=== PATIENT | male | born 1930 | race Caucasian/White ===

== ENCOUNTER 2016-09-27 09:29 | Observation (INO) | payer MEDICARE ==
[~2016-09-27] VITALS: Ht 180.3 cm; Wt 63.0 kg
[~2016-09-27 09:29] MED LIST: APIX2.5T PO; ASPI1TAB69 PO; CYCL1TAB29 PO; LEVEMIR SQ; METO25TA3 PO; NORC5TAB PO
[2016-09-27 09:48] VITALS: BP 156/71; PULSE 94; RESP 20; TEMP 98.5; O2SAT 98
[2016-09-27] MEDS ORDERED: SODIUM CHLORIDE 0.9% FLUSH 5 ML FLUSH IVF PRN (10:45)
--- NOTE | 2016-09-27 11:32 | RADRPT ---
EXAM DATE/TIME: 09/27/2016 10:53 [facility] COMPARISON: CHEST SINGLE AP, May 12, 2016, 20:58. INDICATIONS : Chest pain after fall. MEDICAL HISTORY : Renal failure, acute. SURGICAL HISTORY : Dialysis catheter. ENCOUNTER: Initial ACUITY: 2 days PAIN SCORE: 10/10 LOCATION: Bilateral chest FINDINGS: A single view of the chest demonstrates a small right pleural effusion and right basilar atelectasis. Right-sided vascular tunnel catheter with tip in the right atrium. Left lung clear. Osseous structu res are intact. CONCLUSION: 1. Small right pleural effusion and right basilar density likely atelectasis. Jeffrey Raza MD on September 27, 2016 at 11:28 Board Certified Radiologist. This report was verified electronically.
--- NOTE | 2016-09-27 11:33 | RADRPT ---
EXAM DATE/TIME: 09/27/2016 10:58 [facility] COMPARISON: PELVIS AP ONLY, September 05, 2016, 13:22. INDICATIONS : Pelvis pain after fall. MEDICAL HISTORY : Renal failure, acute. SURGICAL HISTORY : Dialysis catheter. ENCOUNTER: Initial ACUITY: 2 days PAIN SCORE: 10/10 LOCATION: Bilateral pelvis. FINDINGS: A single frontal view of the pelvis demonstrates no evidence of fracture. The bony pelvic ring is in tact. Bony mineralization is normal. The soft tissues are intact. The mild degenerative changes of both hips. Degenerative changes lower lumbar spine. CONCLUSION: 1. Degenerative changes of both hips. No fracture seen. Jeffrey Raza MD on September 27, 2016 at 11:30 Board Certified Radiologist. This report was verified electronically.
--- NOTE | 2016-09-27 11:35 | RADRPT ---
EXAM DATE/TIME: 09/27/2016 11:01 [facility] COMPARISON: No previous studies available for comparison. INDICATIONS : Lower back pain after fall. MEDICAL HISTORY : Renal failure, acute. SURGICAL HISTORY : Dialysis catheter. ENCOUNTER: Initial ACUITY: 2 days PAIN SCORE: 10/10 LOCATION: Bilateral lower back. FINDINGS: There is severe degenerative change throughout the lumbar spine with prominent endplate osteophytes a nd syndesmophytes throughout. There is no definite evidence of fracture or destructive change. Minima l scoliotic curvature is present. No spondylolisthesis. CONCLUSION: Severe diffuse degenerative change. No acute bony findings. Will Murillo MD on September 27, 2016 at 11:31 Board Certified Radiologist. This report was verified electronically.
[2016-09-27 11:36] VITALS: O2SAT 94
--- NOTE | 2016-09-27 11:54 | PD ---
HPI Chief Complaint: Fall Time Seen by Provider: 10:33 Travel History International Travel<30 days: No Contact w/Intl Traveler<30days: No Traveled to known affect area: No History of Present Illness HPI 85-year-old male with history of end-stage renal disease, hypertension, diabetes , presents to the ER today because he states that he has been feeling weak for several days, yesterday felt weak and stumbled and fell on his back, complaining of back pain. This morning, he states that he had difficulty getting up to dialysis because of weakness. He denies any fevers, chest pains, shortness of breath, or other symptoms. Modifying Factors: None Associated Signs & Symptoms: General fatigue, fall, back pain Risk Factors: Elderly, on dialysis PFSH Past Medical History Hx Anticoagulant Therapy: Yes Asthma: No Autoimmune Disease: No Blood Disorders: No Anxiety: Yes Depression: No Heart Rhythm Problems: No Cancer: No Cardiovascular Problems: Yes High Cholesterol: No Chemotherapy: No Chest Pain: No Congestive Heart Failure: No COPD: No Diabetes: Yes Patient Takes Glucophage: No Dialysis: Yes Diminished Hearing: Yes Endocrine: Yes Genitourinary: Yes (RENAL INSUFF, dialysis) Hypertension: Yes Immune Disorder: No Implanted Vascular Access Dvce: Yes Musculoskeletal: Yes (WEAKNESS, USES CANE) Neurologic: No Psychiatric: Yes Reproductive: No Respiratory: No Radiation Therapy: No Renal Failure: Yes (INSUFFICIENCY) Sleep Apnea: No Thyroid Disease: Yes Past Surgical History AICD: No Arteriovenous Shunt: No Eye Surgery: Yes (3 YRS AGO) Insulin Pump: No Joint Replacement: No Pacemaker: No Other Surgery: Yes Social History Alcohol Use: Yes (OCC) Tobacco Use: No Substance Use: No Allergies-Medications (Allergen,Severity, Reaction): Coded Allergies: No Known Allergies (Verified , 09/27/16) Reported Meds & Prescriptions Reported Meds & Active Scripts Active Metoprolol Tartrate 25 Mg Tab 25 Mg PO Q12HR Flexeril (Cyclobenzaprine HCl) 10 Mg Tab 10 Mg PO TID [place] (Hydrocodone-Acetaminophen) 5-325 mg Tab 1 Tab PO Q6H PRN Reported Eliquis (Apixaban) 2.5 Mg Tab 2.5 Mg PO BID Levemir Inj (Insulin Detemir) 1,000 unit/ 10 ML Vial 8 Units SQ DAILY Do not mix with any other Insulin. Aspirin 81 Mg Tabdr 81 Mg PO DAILY Review of Systems Except as stated in HPI: all other systems reviewed are Neg Physical Exam Narrative GENERAL: Well-nourished, well-developed elderly male patient in no acute distress awake and oriented 3.. SKIN: Warm and dry. HEAD: Normocephalic. EYES: No scleral icterus. No injection or drainage. NECK: Supple, trachea midline. CARDIOVASCULAR: Regular rate and rhythm without murmurs, gallops, or rubs. RESPIRATORY: Breath sounds equal bilaterally. No accessory muscle use. GASTROINTESTINAL: Abdomen soft, non-tender, nondistended. MUSCULOSKELETAL: No cyanosis, or edema. BACK: Diffuse lower back lumbar tenderness without obvious deformity. No CVA tenderness. Data Data Last Documented VS Vital Signs Date Time Temp Pulse Resp B/P Pulse Ox O2 Delivery O2 Flow Rate FiO2 09/27/16 09:48 98.5 94 20 156/71 98 Orders Electrocardiogram (09/27/16 10:33) Complete Blood Count With Diff (09/27/16 10:33) Comprehensive Metabolic Panel (09/27/16 10:33) Magnesium (Mg) (09/27/16 10:33) Ckmb (Isoenzyme) Profile (09/27/16 10:33) Troponin I (09/27/16 10:33) Chest, Single Ap (09/27/16 10:33) Ct Brain W/O Iv Contrast(Rout) (09/27/16 10:33) Ecg Monitoring (09/27/16 10:33) Iv Access Insert/Monitor (09/27/16 10:33) Oximetry (09/27/16 10:33) Sodium Chloride 0.9% Flush (Ns Flush) (09/27/16 10:45) Spine, Lumbar Comp W/Obliq (09/27/16 10:33) Pelvis, Ap Only (Routine) (09/27/16 10:33) CKMB (09/27/16 11:45) CKMB% (09/27/16 11:45) Consult Pt Eval & Treat (09/27/16 16:14) Labs Laboratory Tests Test 09/27/16 11:45 White Blood Count 11.1 TH/MM3 Red Blood Count 3.82 MIL/MM3 Hemoglobin 9.9 GM/DL Hematocrit 32.1 % Mean Corpuscular Volume 84.0 FL Mean Corpuscular Hemoglobin 25.8 PG Mean Corpuscular Hemoglobin 30.8 % Concent Red Cell Distribution Width 18.3 % Platelet Count 262 TH/MM3 Mean Platelet Volume 7.7 FL Neutrophils (%) (Auto) 77.6 % Lymphocytes (%) (Auto) 9.9 % Monocytes (%) (Auto) 7.0 % Eosinophils (%) (Auto) 5.0 % Basophils (%) (Auto) 0.5 % Neutrophils # (Auto) 8.6 TH/MM3 Lymphocytes # (Auto) 1.1 TH/MM3 Monocytes # (Auto) 0.8 TH/MM3 Eosinophils # (Auto) 0.6 TH/MM3 Basophils # (Auto) 0.1 TH/MM3 CBC Comment DIFF FINAL Differential Comment Sodium Level 140 MEQ/L Potassium Level 4.4 MEQ/L Chloride Level 105 MEQ/L Carbon Dioxide Level 29.1 MEQ/L Anion Gap 6 MEQ/L Blood Urea Nitrogen 25 MG/DL Creatinine 3.63 MG/DL Estimat Glomerular Filtration 16 ML/MIN Rate Random Glucose 166 MG/DL Calcium Level 8.8 MG/DL Magnesium Level 2.0 MG/DL Total Bilirubin 0.3 MG/DL Aspartate Amino Transf 16 U/L (AST/SGOT) Alanine Aminotransferase 16 U/L (ALT/SGPT) Alkaline Phosphatase 218 U/L Total Creatine Kinase 124 U/L Creatine Kinase MB 2.6 NG/ML Troponin I 0.04 NG/ML Total Protein 7.0 GM/DL Albumin 3.1 GM/DL MDM Medical Decision Making Medical Screen Exam Complete: Yes Emergency Medical Condition: Yes Medical Record Reviewed: Yes Interpretation(s) EKG shows NSR, no ST elevation or depression, and no arrhythmias. No significant T-wave inversions. Laboratory Tests Test 09/27/16 11:45 White Blood Count 11.1 TH/MM3 (4.0-11.0) Red Blood Count 3.82 MIL/MM3 (4.50-5.90) Hemoglobin 9.9 GM/DL (13.0-17.0) Hematocrit 32.1 % (39.0-51.0) Mean Corpuscular Hemoglobin 25.8 PG (27.0-34.0) Mean Corpuscular Hemoglobin 30.8 % Concent (32.0-36.0) Red Cell Distribution Width 18.3 % (11.6-17.2) Neutrophils (%) (Auto) 77.6 % (16.0-70.0) Eosinophils (%) (Auto) 5.0 % (0.0-4.0) Neutrophils # (Auto) 8.6 TH/MM3 (1.8-7.7) Eosinophils # (Auto) 0.6 TH/MM3 (0-0.4) Blood Urea Nitrogen 25 MG/DL (7-18) Creatinine 3.63 MG/DL (0.60-1.30) Estimat Glomerular Filtration 16 ML/MIN (>89) Rate Random Glucose 166 MG/DL (74-106) Alkaline Phosphatase 218 U/L (45-117) Albumin 3.1 GM/DL (3.4-5.0) Last 24 hours Impressions Pelvis X-Ray 09/27/16 1033 Signed Impressions: Service Date/Time: September 10:58 - CONCLUSION: 1. Degenerative changes of both hips. No fracture seen. Jeffrey Raza MD Lumbar Spine X-Ray 09/27/16 103 Signed Impressions: Service Date/Time: September 11:01 - CONCLUSION: Severe diffuse degenerative change. No acute bony findings. Will Murillo MD Head CT 09/27/16 1033 Signed Impressions: Service Date/Time: September 11:50 - CONCLUSION: Stable brain appearance. No acute intracranial findings. Will Murillo MD Chest X-Ray 09/27/16 1033 Signed Impressions: Service Date/Time: September 10:53 - CONCLUSION: 1. Small right pleural effusion and right basilar density likely atelectasis. Jeffrey Raza MD Differential Diagnosis General weaknessmetabolic issues versus dehydration versus sepsis Narrative Course Patient states that he is scared at home, lives alone, is unable to walk, no longer gets home healthcare. Lab work did not indicate significant signs of sepsis, dehydration, metabolic issues. CAT scan did not show any signs of acute intercranial processes. He does not seem to have focal neurological deficits but he does appear to have problems with general weakness. At this point, I have discussed the case several times with case management and they state that they have had encounters with the patient the past. He does not want long-term care, wants to get therapy to walk again. At this point, my plan would be to admit the patient for further evaluation by physical therapy for ambulation and further evaluation of his abilities and safety to go home. I do not think that the patient seems to go home especially with him on a blood thinner, and frequent falls, and living alone. I have discussed my concerns with Dr. Watson who is agreeable to admit the patient as an observation. Diagnosis Primary Impression: Unable to ambulate Additional Impression: Weakness Admitting Information Admitting Physician Requests: it Ted Duff MD Sep 27, 2016 11:54
[2016-09-27 12:04] LABS: AUTOMATED NEUTROPHIL # 8.6 TH/MM3 (1.8-7.7); BASOPHIL # 0.1 TH/MM3 (0-0.2); BASOPHIL % 0.5 % (0.0-2.0); EOSINOPHIL # 0.6 TH/MM3 (0-0.4); HEMATOCRIT 32.1 % (39.0-51.0); HEMO FLAGS DIFF FINAL; LYMPH % 9.9 % (9.0-44.0); LYMPHOCYTE # 1.1 TH/MM3 (1.0-4.8); MEAN CORPUSCULAR HEMOGLOBIN 25.8 PG (27.0-34.0); MEAN CORPUSCULAR HGB CONC 30.8 % (32.0-36.0); NEUT % 77.6 % (16.0-70.0); PLATELET COUNT 262 TH/MM3 (150-450); RED BLOOD COUNT 3.82 MIL/MM3 (4.50-5.90); RED CELL DISTRIBUTION WIDTH 18.3 % (11.6-17.2); WHITE BLOOD COUNT 11.1 TH/MM3 (4.0-11.0)
--- NOTE | 2016-09-27 12:08 | RADRPT ---
EXAM DATE/TIME: 09/27/2016 11:50 [facility] COMPARISON: CT BRAIN W/O CONTRAST, September 05, 2016, 13:50. INDICATIONS : Dizziness. RADIATION DOSE: 43.15 CTDIvol (mGy) MEDICAL HISTORY : Cardiovascular disease. Hypertension. Diabetes mellitus type 2. SURGICAL HISTORY : None. ENCOUNTER: Initial ACUITY: 1 day PAIN SCALE: 0/10 LOCATION: cranial TECHNIQUE: Multiple contiguous axial images were obtained of the head. Using automated exposure control and adj ustment of the mA and/or kV according to patient size, radiation dose was kept as low as reasonably a chievable to obtain optimal diagnostic quality images. FINDINGS: Stable tiny basal ganglia and thalamic lacunar infarcts. Patchy moderate diminished attenuation and d eep white matter. No evidence of intracranial hemorrhage or mass. Nothing to suggest acute infarction . Extracranial structures are benign and intact. CONCLUSION: Stable brain appearance. No acute intracranial findings. Will Murillo MD on September 27, 2016 at 12:04 Board Certified Radiologist. This report was verified electronically.
[2016-09-27 12:19] LABS: ALT (GPT) 16 U/L (12-78); ANION GAP 6 MEQ/L (5-15); AST (GOT) 16 U/L (15-37); BICARBONATE 29.1 MEQ/L (21.0-32.0); BLOOD UREA NITROGEN 25 MG/DL (7-18); CHLORIDE 105 MEQ/L (98-107); GLOMERULAR FILTRATION RATE 16 ML/MIN (>89); POTASSIUM 4.4 MEQ/L (3.5-5.1); SODIUM (NA) 140 MEQ/L (136-145)
[2016-09-27 12:23] LABS: ALKALINE PHOSPHATASE 218 U/L (45-117); CREATINE KINASE 124 U/L (39-308); TOTAL BILIRUBIN ADULT 0.3 MG/DL (0.2-1.0)
[2016-09-27 12:35] LABS: CKMB 2.6 NG/ML (0.5-3.6)
[2016-09-27 14:00] VITALS: BP 148/76; PULSE 96; RESP 20; O2SAT 97
[2016-09-27] MEDS ORDERED: SENNOSIDES 8.6 MG TAB PO PRN (16:30)
[2016-09-27] MEDS: DOCUSATE SODIUM 100 MG CAP PO SCH (16:30)
[2016-09-27] MEDS ORDERED: BISACODYL 10 MG SUPP PR PRN (16:30)
[2016-09-27] MEDS ORDERED: MAGNESIUM HYDROXIDE SUSP 30 ML CUP PO PRN (16:30)
[2016-09-27] MEDS ORDERED: ACETAMINOPHEN 325 MG TAB PO PRN (16:30)
[2016-09-27] MEDS ORDERED: SODIUM CHLORIDE 0.9% FLUSH 5 ML FLUSH FLUSH PRN (16:30)
[2016-09-27] MEDS ORDERED: NALOXONE HCL 0.4 MG/ML AMP IV PRN (16:30)
[2016-09-27 17:29] VITALS: BP 148/69; PULSE 76; RESP 16; O2SAT 96
[2016-09-27] MEDS: HEPARIN SODIUM - SQ 10,000 UNITS/ML VIAL SQ SCH (17:29)
[2016-09-27 18:35] VITALS: BP 168/104; PULSE 84; RESP 17; O2SAT 97
[2016-09-27] MEDS ORDERED: GLUCAGON 1 MG/ML VIAL OTHER PRN (18:45)
[2016-09-27] MEDS ORDERED: ACETAMINOPHEN/HYDROcodone 325 MG/5 MG TAB PO PRN (18:45)
[2016-09-27] MEDS ORDERED: DEXTROSE 50% IN WATER 50 ML VIAL(D50) IV PUSH PRN (18:45)
--- NOTE | 2016-09-27 18:46 | HHI.HP ---
[facility] Service [facility] Primary Care Physician Constance Doe MD Admission Diagnosis inability to ambulate/general weakness Diagnoses: Chief Complaint: Back pain and generalized weakness, unable to walk Travel History International Travel<30 Days: No Contact w/Intl Traveler <30 Da: No Traveled to Known Affected Are: No History of Present Illness 85 years old male with history of ESRD on hemodialysis, hypertension, diabetes mellitus, chronic generalized weakness, who is known to our service from multiple previous admission, patient usually refused rehabilitation or even home health care, but yet he lives alone, he is very poor historian and hard to communicate with. I had a lengthy discussion with the ED physician and Mr. Meier the community case manager regarding this admission, ED department saying patient is not safe to be discharged since he lives alone, after lengthy discussion, we will admit a shoe for observation, PT martha, his lumbar CV showing severe degenerative changes are which we will of in consultation from neurosurgery, case management graciously will work on placement. I tried to discuss that with the patient who stated he has severe back pain, but he does not want to go to rehabilitation because they don't treat him well there. It becomes difficult situation with the patient is not safe to be discharged but yet he refused to go to rehabilitation. Review of Systems ROS Limitations: Poor Historian Other All 10 systems reviewed and was positive for back pain, patient is extremely poor historian Past Family Social History Past Medical History ESRD on hemodialysis Diabetes mellitus Hypertension Hyperlipidemia Chronic back pain Generalized weakness Past Surgical History Eye surgery Allergies: Coded Allergies: No Known Allergies (Verified , 09/27/16) Family History Reviewed noncontributory Social History Denied tobacco alcohol or illicit drug abuse Physical Exam Vital Signs Vital Signs Date Time Temp Pulse Resp B/P Pulse Ox O2 Delivery O2 Flow Rate FiO2 09/27/16 18:35 84 17 168/104 97 Room Air 09/27/16 17:29 76 16 148/69 96 Room Air 09/27/16 14:00 96 20 148/76 97 Room Air 09/27/16 11:36 94 Room Air 09/27/16 09:48 98.5 94 20 156/71 98 Physical Exam - GENERAL: This is a frail cachectic well-developed patient, in no apparent distress. SKIN: No rashes, warm and dry HEAD: Atraumatic. Normocephalic. EYES: Pupils equal round and reactive. Extraocular motions intact. No scleral icterus. ENT: Nose without bleeding, or drainage, Airway patent. NECK: Trachea midline. Supple CARDIOVASCULAR: Regular rate and rhythm without murmurs, gallops, or rubs. RESPIRATORY: Fair air entry bilaterally. No wheezes, rales, or rhonchi. GASTROINTESTINAL: Abdomen soft, non-tender, nondistended. Positive bowel sounds MUSCULOSKELETAL: Extremities without clubbing, cyanosis, or edema. Pedal pulses appreciated NEUROLOGICAL: Awake and alert. Moves all extremity. Normal speech.no focal neurological deficit Laboratory Laboratory Tests Test 09/27/16 11:45 White Blood Count 11.1 Red Blood Count 3.82 Hemoglobin 9.9 Hematocrit 32.1 Mean Corpuscular Volume 84.0 Mean Corpuscular Hemoglobin 25.8 Mean Corpuscular Hemoglobin 30.8 Concent Red Cell Distribution Width 18.3 Platelet Count 262 Mean Platelet Volume 7.7 Neutrophils (%) (Auto) 77.6 Lymphocytes (%) (Auto) 9.9 Monocytes (%) (Auto) 7.0 Eosinophils (%) (Auto) 5.0 Basophils (%) (Auto) 0.5 Neutrophils # (Auto) 8.6 Lymphocytes # (Auto) 1.1 Monocytes # (Auto) 0.8 Eosinophils # (Auto) 0.6 Basophils # (Auto) 0.1 CBC Comment DIFF FINAL Differential Comment Sodium Level 140 Potassium Level 4.4 Chloride Level 105 Carbon Dioxide Level 29.1 Anion Gap 6 Blood Urea Nitrogen 25 Creatinine 3.63 Estimat Glomerular Filtration 16 Rate Random Glucose 166 Calcium Level 8.8 Magnesium Level 2.0 Total Bilirubin 0.3 Aspartate Amino Transf 16 (AST/SGOT) Alanine Aminotransferase 16 (ALT/SGPT) Alkaline Phosphatase 218 Total Creatine Kinase 124 Creatine Kinase MB 2.6 Troponin I 0.04 Total Protein 7.0 Albumin 3.1 Result Diagram: 09/27/16 1145 09/27/16 1145 Imaging Last Impressions Pelvis X-Ray 09/27/16 1033 Signed Impressions: Service Date/Time: September 10:58 - CONCLUSION: 1. Degenerative changes of both hips. No fracture seen. Jeffrey Raza MD Lumbar Spine X-Ray 09/27/161032 Signed Impressions: Service Date/Time: September 11:01 - CONCLUSION: Severe diffuse degenerative change. No acute bony findings. Will Murillo MD Head CT 09/27/161032 Signed Impressions: Service Date/Time: September 11:50 - CONCLUSION: Stable brain appearance. No acute intracranial findings. Will Murillo MD Chest X-Ray 09/27/161032 Signed Impressions: Service Date/Time: September 10:53 - CONCLUSION: 1. Small right pleural effusion and right basilar density likely atelectasis. Jeffrey Raza MD Assessment and Plan Assessment and Plan 85 years old male with past medical history of generalized weakness, ESRD, hypertension, diabetes mellitus came with Recurrent generalized Worsening lower extremity weakness, unable to walk Hypertension Chronic kidney disease ESRD on hemodialysis Diabetes mellitus Occlusive thrombus on Eliquis DVT prophylaxis resume Eliquis Plan: Admit for observation Consult PT OT Consulted and discussed in length with community case manager for placement Personally reviewed CT of the head CT of the lumbar spine which showed severe degenerative changes, consult neurosurgery Pain management Accu-Chek, insulin sliding scale, resume his basal insulin, diabetic diet Consult renal for hemodialysis Resume her medication including elliquis Discussed Condition With In length with the ED physician, community case manager Anila Watson MD Sep 27, 2016 18:46
[2016-09-27 20:10] VITALS: BP 162/71; PULSE 68; RESP 20; TEMP 97.3; O2SAT 94; O2SAT 98
[2016-09-27] MEDS ORDERED: APIXABAN 2.5 MG TABLET PO SCH (21:00)
[2016-09-27] MEDS: SODIUM CHLORIDE 0.9% FLUSH 5 ML FLUSH FLUSH SCH (22:31)
[2016-09-27] MEDS: METOPROLOL TARTRATE 25 MG TAB PO SCH (22:31)
[2016-09-27] MEDS: INSULIN ASPART SUPPLEMENTAL SCALE SQ SCH (22:32)
[2016-09-28] VITALS (8 sets, daily range): BP systolic 139–185; BP diastolic 64–74; PULSE 56–86; RESP 16–20; TEMP 96–98.1; O2SAT 93–98
[2016-09-28] MEDS: HEPARIN SODIUM - SQ 10,000 UNITS/ML VIAL SQ SCH ×2 (01:17→09:02)
[2016-09-28] MEDS: DOCUSATE SODIUM 100 MG CAP PO SCH ×2 (04:30→17:54)
[2016-09-28] MEDS: INSULIN ASPART SUPPLEMENTAL SCALE SQ SCH ×4 (07:00→20:40)
[2016-09-28] MEDS ORDERED: SODIUM CHLOR 0.9% 1000 ML INJ 1,000 ML IV PRN (08:38)
[2016-09-28] MEDS ORDERED: SODIUM CHLORIDE 0.9% FLUSH 5 ML FLUSH IVF PRN (08:45)
[2016-09-28] MEDS ORDERED: diphenhydrAMINE HCL 25 MG CAP PO PRN (08:45)
[2016-09-28] MEDS ORDERED: GELATIN 12 MM/7 MM FOAM TOP PRN (08:45)
[2016-09-28] MEDS ORDERED: MANNITOL 12.5 GM/50 ML VIAL IV PRN (08:45)
[2016-09-28] MEDS ORDERED: ONDANSETRON HCL 4 MG/2 ML VIAL IV PRN (08:45)
[2016-09-28] MEDS ORDERED: NITROGLYCERIN 0.4 MG SL 25 TABS/BTL SL PRN (08:45)
[2016-09-28] MEDS ORDERED: HEPARIN SODIUM - IV 10,000 UNITS/10 ML VIAL IVF PRN (08:45)
[2016-09-28] MEDS ORDERED: ACETAMINOPHEN 325 MG TAB PO PRN (08:45)
[2016-09-28] MEDS ORDERED: ALBUMIN HUMAN 25% 25 GM/100 ML BAGP IV PRN (08:45)
[2016-09-28] MEDS ORDERED: cloNIDine HCL 0.1 MG TAB PO PRN (08:45)
[2016-09-28] MEDS: ASPIRIN EC 81 MG TABEC PO SCH (09:02)
[2016-09-28] MEDS: INSULIN DETEMIR 100 UNITS/ML VIAL SQ SCH (09:02)
[2016-09-28] MEDS: CYCLOBENZAPRINE HCL 10 MG TAB PO SCH ×3 (09:02→17:54)
[2016-09-28] MEDS: METOPROLOL TARTRATE 25 MG TAB PO SCH ×2 (09:02→20:39)
[2016-09-28] MEDS: SODIUM CHLORIDE 0.9% FLUSH 5 ML FLUSH FLUSH SCH ×2 (09:03→20:40)
[2016-09-28 09:21] LABS: AUTOMATED NEUTROPHIL # 7.1 TH/MM3 (1.8-7.7); BASOPHIL # 0.1 TH/MM3 (0-0.2); EOSINOPHIL # 0.6 TH/MM3 (0-0.4); EOSINOPHIL % 6.8 % (0.0-4.0); HEMO FLAGS DIFF FINAL; LYMPH % 11.9 % (9.0-44.0); LYMPHOCYTE # 1.1 TH/MM3 (1.0-4.8); MEAN CELL VOLUME 83.8 FL (80.0-100.0); MEAN CORPUSCULAR HEMOGLOBIN 25.9 PG (27.0-34.0); MEAN CORPUSCULAR HGB CONC 30.9 % (32.0-36.0); MONO % 5.3 % (0.0-8.0); PLATELET COUNT 320 TH/MM3 (150-450); WHITE BLOOD COUNT 9.5 TH/MM3 (4.0-11.0)
--- NOTE | 2016-09-28 09:33 | RADRPT ---
EXAM DATE/TIME: 09/28/2016 08:01 [facility] COMPARISON: SPINE LUMBAR COMPLETE W/OBLIQ, September 27, 2016, 11:01. INDICATIONS : Lower back pain post fall 2 days ago. MEDICAL HISTORY : Hypertension. Renal insufficiency. SURGICAL HISTORY : Dialysis cath, eye surgery. ENCOUNTER: Subsequent ACUITY: 2 day PAIN SCORE: 5/10 LOCATION: lower back TECHNIQUE: Multiplanar multisequence MRI of the lumbar spine was performed without contrast. FINDINGS: The most caudal appearing lumbar vertebra is numbered as L5. VERTEBRAE: Abnormal signal present within the L2 vertebral body consistent with combined edema and hemorrhage. T here is fracture deformity which is largely horizontal in orientation with a hemorrhagic cleft presen t in the midportion of vertebral body anteriorly. There is no significant loss of vertebral body heig ht. No significant retropulsion. In the right-sided neural foramina and paraspinal soft tissues at th e L1-L2 level on the right, T1 hypointense heterogeneous T2 hyperintense lobular masses are present e xtending from the region of the neural foramen laterally, initially roughly along the course of the e xiting nerve roots with slight extension into the lateral paraspinal tissues, particularly at the L2 level. These findings may reflect hematomas, however neoplasm would be additional consideration and f ollowup at appropriate interval ideally with pre-and postcontrast sequences would be suggested. CONUS: Normal level and configuration. T12-L1: Significant disc degeneration without significant dorsal protrusion, canal or foraminal stenosis. L1-L2: Annular disc bulge with broad superimposed dorsal disc protrusion. Lobular heterogeneous signal mass or collection involving the right neural foramen extending laterally on the right wrapping slightly i nto the lateral paraspinal tissues deep to the psoas muscle. See above discussion. L2-L3: Minimal annular disc bulge with slight sunitha. Canal and foramina appear adequate. The lobular heterogen eous signal mass or collection extending from the lateral margin of the right neural foramen into the lateral paraspinal tissues deep to the psoas muscle. See above discussion. L3-L4: Slight annular disc bulge with minimal broad posterior dorsal protrusion. Canal and foramina appear a dequate. L4-L5: Annular disc bulge with broad mild superimposed dorsal disc protrusion, broadly asymmetric to the rig ht with mild asymmetrically right-sided foraminal narrowing. Slight encroachment of the lateral reces s. Canal appears adequate L5-S1: Annular disc bulge with minimal broad superimposed dorsal protrusion. Mild foraminal narrowing right worse and left. Canal is adequate. Moderate posterior facet arthropathy left worse than right. CONCLUSION: Compression and horizontal cleavage fracture at the L2 level without significant loss of vertebral koko dy height. Lobular masses or collections involving the right-sided neural foramina and paraspinal tis sues at the L1 and 2 levels as described. Will Murillo MD on September 28, 2016 at 9:17 Board Certified Radiologist. This report was verified electronically.
[2016-09-28 09:40] LABS: BICARBONATE 29.4 MEQ/L (21.0-32.0); POTASSIUM 4.4 MEQ/L (3.5-5.1)
--- NOTE | 2016-09-28 11:17 | HHI.PR ---
Subjective Remarks patient laying in bed, still complaining back pain, I discussed with him discharge planning, and he definitely not except to go to rehabilitation He is okay to go home with home healthcare, still waiting on neurosurgery consultation Objective Vitals Vital Signs Date Time Temp Pulse Resp B/P Pulse Ox O2 Delivery O2 Flow Rate FiO2 09/28/16 08:00 63 09/28/16 04:59 61 09/28/16 04:54 62 09/28/16 04:27 96.2 64 18 161/73 98 09/28/16 00:05 96.0 63 18 185/74 98 09/27/16 20:10 97.3 68 20 162/71 98 09/27/16 18:35 84 17 168/104 97 Room Air 09/27/16 17:29 76 16 148/69 96 Room Air 09/27/16 14:00 96 20 148/76 97 Room Air 09/27/16 11:36 94 Room Air I/O 09/27/16 09/27/16 09/27/16 09/28/16 09/28/16 09/28/16 07:00 15:00 23:00 07:00 15:00 23:00 Intake Total 240 ml Output Total 100 ml Balance 140 ml Intake Oral 240 ml Output Urine Total 100 ml # Bowel Movements 0 Result Diagram: 09/28/16 0839 09/28/16 0839 Imaging Last Impressions Lumbar Spine MRI 09/28/16 0000 Signed Impressions: Service Date/Time: Wednesday, September 28, 2016 08:01 - CONCLUSION: Compression and horizontal cleavage fracture at the L2 level without significant loss of vertebral body height. Lobular masses or collections involving the right-sided neural foramina and paraspinal tissues at the L1 and 2 levels as described. Will Murillo MD Pelvis X-Ray 09/27/16 103 Signed Impressions: Service Date/Time: September 10:58 - CONCLUSION: 1. Degenerative changes of both hips. No fracture seen. Jeffrey Raza MD Lumbar Spine X-Ray 09/27/161032 Signed Impressions: Service Date/Time: September 11:01 - CONCLUSION: Severe diffuse degenerative change. No acute bony findings. Will Murillo MD Head CT 09/27/16 1033 Signed Impressions: Service Date/Time: September 11:50 - CONCLUSION: Stable brain appearance. No acute intracranial findings. Will Murillo MD Chest X-Ray 09/27/16 1033 Signed Impressions: Service Date/Time: , September 27, 2016 10:53 - CONCLUSION: 1. Small right pleural effusion and right basilar density likely atelectasis. Jeffrey Raza MD Objective Remarks GENERAL: This is frail cachectic elderly well-developed patient, in no apparent distress. CARDIOVASCULAR: Regular rate and rhythm without murmurs, gallops, or rubs. RESPIRATORY: Clear to auscultation. Breath sounds equal bilaterally. No wheezes , rales, or rhonchi. GASTROINTESTINAL: Abdomen soft, non-tender, nondistended. Normal active bowel sounds MUSCULOSKELETAL: Extremities without clubbing, cyanosis, or edema. NEURO: Alert & Oriented x4 to person, place, time, situation. Moves all ext x4 A/P Assessment and Plan 85 years old male with past medical history of generalized weakness, ESRD, hypertension, diabetes mellitus came with Recurrent generalized Worsening lower extremity weakness, unable to walk Hypertension Chronic kidney disease ESRD on hemodialysis Diabetes mellitus Occlusive thrombus on Eliquis DVT prophylaxis resume Eliquis Plan: waiting PT OT discussed again with family independence case manager today, they will work on getting home health care with the patient is able to walk Personally reviewed CT of the head CT of the lumbar spine which showed severe degenerative changes, consult neurosurgery Pain management Accu-Chek, insulin sliding scale, resume his basal insulin, diabetic diet appreciate renal consultation for hemodialysis Resume her medication including Anila Tarango MD Sep 28, 2016 11:17
--- NOTE | 2016-09-28 12:28 | PD.CONS ---
[facility] Service Nephrology Consult Requested By Reason for Consult ESRD on PD Primary Care Physician Constance Doe MD History of Present Illness This is out 85 y/o dialysis patient with PMH as listed below including ESRD, HTN, DVT, and DM. He typically dialyzes T-, missed Saturday due to a fall, had treatment Saturday. He did not go to dialysis yesterday. On exam he reports back pain and inability to walk. Imaging shows chronic degenerative changes to L spine, neurosurgery has been consulted. He has refused rehab in the past, also refusing AVF creation. He has poor insight, lives alone, has no social/family support. We were consulted for dialysis management. He is awake, oriented x 3, in no distress. There are no significant lab abnormalities. He is a full code. 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 Aspirin 81 Mg Tabdr 81 Mg PO DAILY Active Ordered Medications Current Medications Medications (Trade) Dose Ordered Sig/Ganesh Route Start Time Stop Time Status Last Admin (NS Flush) 2 ml UNSCH PRN FLUSH 09/27/16 16:30 (NS Flush) 2 ml BID FLUSH 09/27/16 21:00 09/28/16 09:03 (Tylenol) 650 mg Q4H PRN PO 09/27/16 16:30 (Dulcolax Supp) 10 mg DAILY PRN [place] 09/27/16 16:30 (Colace) 100 mg Q12H PO 09/27/16 16:30 (Milk Of Magnesia Liq) 30 ml Q12H PRN PO 09/27/16 16:30 (Senokot) 17.2 mg Q12H PRN PO 09/27/16 16:30 (Narcan Inj) 0.4 mg UNSCH PRN IV 09/27/16 16:30 (D50w (Vial) Inj) 25 ml UNSCH PRN IV PUSH 09/27/16 18:45 (Glucagon Inj) 1 mg UNSCH PRN OTHER 09/27/16 18:45 (Ecotrin Ec) 81 mg DAILY PO 09/28/16 09:00 09/28/16 09:02 (Flexeril) 10 mg TID PO 09/28/16 09:00 09/28/16 09:02 ([place] 5-325 Mg) 1 tab Q6H PRN PO 09/27/16 18:45 (Levemir Inj) 8 units DAILY SQ 09/28/16 09:00 09/28/16 09:02 Metoprolol Tartrate 25 mg 25 mg Q12HR PO 09/27/16 21:00 09/28/16 09:02 (NS 1000 ml Inj) 1,000 ml @ 0 mls/hr Q0M PRN IV 09/28/16 08:38 Heparin Sodium (Porcine) 8000 units 8,000 units UNSCH PRN IVF 09/28/16 08:45 Sodium Chloride 1,000 ml @ 200 mls/hr Q5H PRN IV 09/28/16 08:38 (NS 1000 ml Inj) 1,000 ml @ 0 mls/hr Q0M PRN IV 09/28/16 08:38 (Mannitol Inj) 12.5 gm UNSCH PRN IV 09/28/16 08:45 (Albumin 25% Inj) 25 gm UNSCH PRN IV 09/28/16 08:45 (NS Flush) 5 ml UNSCH PRN IVF 09/28/16 08:45 (Heparin Inj) UNSCH PRN .XX 09/28/16 08:45 (Gentamicin (Dialysis) Inj) 20 mg UNSCH PRN IV 09/28/16 08:45 (Zofran Inj) 4 mg UNSCH PRN IV 09/28/16 08:45 (Tylenol) 650 mg UNSCH PRN PO 09/28/16 08:45 (Benadryl) 25 mg UNSCH PRN PO 09/28/16 08:45 (Nitrostat Sl) 0.4 mg UNSCH PRN SL 09/28/16 08:45 (Catapres) 0.1 mg UNSCH PRN PO 09/28/16 08:45 (Epogen Inj) 7,500 units UNSCH PRN IV 09/28/16 08:45 (Gelfoam 12 Mm/7 Mm Top) 1 foam UNSCH PRN TOP 09/28/16 08:45 (Eliquis) 2.5 mg BID PO 09/28/16 21:00 Family History No hx of renal disorders Social History No smoking or ETOH per history Lives alone, has no social support Frequent falls, uses walker Poor insight Retired Full code , no contact with 2 sons in 20 years (Jahaira Nogueira) Physical Exam Vital Signs Vital Signs Date Time Temp Pulse Resp B/P Pulse Ox O2 Delivery O2 Flow Rate FiO2 09/28/16 11:55 97.4 66 18 147/72 97 09/28/16 11:55 98.0 56 16 152/67 96 09/28/16 08:00 63 09/28/16 04:59 61 09/28/16 04:54 62 09/28/16 04:27 96.2 64 18 161/73 98 09/28/16 00:05 96.0 63 18 185/74 98 09/27/16 20:10 97.3 68 20 162/71 98 09/27/16 18:35 84 17 168/104 97 Room Air 09/27/16 17:29 76 16 148/69 96 Room Air 09/27/16 14:00 96 20 148/76 97 Room Air Physical Exam Elderly male with generalized muscle wasting, disheveled awake, oriented x 2, not to time, no neuro deficit CV: S1/S2, regular rate, no murmurs; permcath right chest Lungs; clear in all vital, no wheezing Abd; flat, soft Ext: no edema; distal pulses strong Skin: intact Laboratory Laboratory Tests Test 09/28/16 08:39 White Blood Count 9.5 Red Blood Count 4.30 Hemoglobin 11.1 Hematocrit 36.0 Mean Corpuscular Volume 83.8 Mean Corpuscular Hemoglobin 25.9 Mean Corpuscular Hemoglobin 30.9 Concent Red Cell Distribution Width 18.0 Platelet Count 320 Mean Platelet Volume 7.8 Neutrophils (%) (Auto) 75.0 Lymphocytes (%) (Auto) 11.9 Monocytes (%) (Auto) 5.3 Eosinophils (%) (Auto) 6.8 Basophils (%) (Auto) 1.0 Neutrophils # (Auto) 7.1 Lymphocytes # (Auto) 1.1 Monocytes # (Auto) 0.5 Eosinophils # (Auto) 0.6 Basophils # (Auto) 0.1 CBC Comment DIFF FINAL Differential Comment Sodium Level 140 Potassium Level 4.4 Chloride Level 102 Carbon Dioxide Level 29.4 Anion Gap 9 Blood Urea Nitrogen 29 Creatinine 4.26 Estimat Glomerular Filtration 13 Rate Random Glucose 110 Calcium Level 9.0 (Jahaira Nogueira) Result Diagram: 09/28/16 0839 09/28/16 0839 Imaging Last 72 hours Impressions Lumbar Spine MRI 09/28/16 0000 Signed Impressions: Service Date/Time: Wednesday, September 28, 2016 08:01 - CONCLUSION: Compression and horizontal cleavage fracture at the L2 level without significant loss of vertebral body height. Lobular masses or collections involving the right-sided neural foramina and paraspinal tissues at the L1 and 2 levels as described. Will Murillo MD Pelvis X-Ray 09/27/16 1033 Signed Impressions: Service Date/Time: September 10:58 - CONCLUSION: 1. Degenerative changes of both hips. No fracture seen. Jeffrey Raza MD Lumbar Spine X-Ray 09/27/16 1033 Signed Impressions: Service Date/Time: September 11:01 - CONCLUSION: Severe diffuse degenerative change. No acute bony findings. Will Murillo MD Head CT 09/27/16 1033 Signed Impressions: Service Date/Time: September 11:50 - CONCLUSION: Stable brain appearance. No acute intracranial findings. Will Murillo MD Chest X-Ray 09/27/16 1033 Signed Impressions: Service Date/Time: September 10:53 - CONCLUSION: 1. Small right pleural effusion and right basilar density likely atelectasis. Jeffrey Raza MD (Jahaira Nogueira) Assessment and Plan Problem List: (1) CKD (chronic kidney disease) stage 5, GFR less than 15 ml/min Plan: Typical --Sat HD schedule So far this week has only had HD on Saturday\ will dialyze today, orders entered monitor electrolytes including phosphorus periodically high protein diet We had a long discussion today regarding discharge planning. He has poor insight , is afraid to live alone. He is requesting to limit treatment time or number of treatments weekly. I informed him that doing dialysis either of those ways is not an effective treatment. If he wishes to no longer go to dialysis that was in fact okay. I explained in detail hospice and palliative care services. He is open to speaking with them, understanding that it would be his decision but if he did choose hospice that he would also be choosing to stop going to dialysis. That decision would shorten his life expectancy but the remaining time would be spent doing comfort care. He is wanting some form of nursing care in his home. 24 hr care is not needed. I will consult palliative services today. (2) Weakness Plan: See above, has frequent falls, refusing rehab he may need Assisted living he is hospice appropriate, have recommended this option a number of times, he would like to think about it (3) Diabetes Plan: blood sugar acceptable, continue insulin as needed (4) Anemia of renal disease Plan: Hemoglobin acceptable epo if Hb < 11 (5) History of hypertension Plan: blood pressure acceptable continue oral medications as ordered (Jahaira Nogueira) Assessment and Plan patient was seen and examined during dialysis. On 3K, UF goal is 1800 ml. BFR 400 ml/min. Patient is considering talking to palliative care/hospice. He is considering discontinuing dialysis, but I am not sure he fully understands implications of that decision. (Casey Ward MD) Jahaira Nogueira Sep 28, 2016 12:28 Casey Ward MD Sep 28, 2016 14:41
[2016-09-28] MEDS: SODIUM CHLOR 0.9% 1000 ML INJ 1,000 ML IV PRN ×4 (13:00→20:23)
[2016-09-28] MEDS: GENTAMICIN SULFATE (DIALYSIS USE ONLY) 20 MG/2 ML VIAL IV PRN (13:00)
[2016-09-28] MEDS: HEPARIN SODIUM - IV 10,000 UNITS/10 ML VIAL PRN (13:01)
--- NOTE | 2016-09-28 14:55 | HHI.HCSW ---
Paralegals Visit Advance Directive Palliative care has been consulted to assist with goals of care. Mr. Arias is previously known to palliative care service on prior admissions. In past admissions Mr. Arias has reported he has no one to appoint as health care surrogate and has refused to complete living will should he become incapacitated to make his own medical decisions. On previous admission [facility] report was ran in an attempt to find 2 sons. Reportedly Mr. Arias has not been in contact with his sons for 20 years. Potential matches to patient's son via accurints report, previous notes (06/01/16 ; 06/04/16) was unable to reach and no call back. * Nacho Arias (son): [phone]--- Was able to get in touch with Nacho today. Confirmed his name. Inquired if he was the son of Mr. Lloyd Arias and he states, "No, goodbye" and hung up. * Tobias Arias (son): [phone]-- attempted to call today, message indicating "at the subscribers request, this phone is not taking incoming calls " . Follow Up Visit Palliative care will continue to follow throughout hospitalization. Full consultation note to follow. SW will follow as needed for emotional and social support. Nikkie Mendoza, PREPARATION ROOM MANAGER Sep 28, 2016 14:55
--- NOTE | 2016-09-28 15:53 | OTSOAPIP ---
TIME SESSION COMPLETED: 1540 TREATMENT TIME: 0 MINS. CHART REVIEWED. RECEIVED OCCUPATIONAL THERAPY ORDERS FROM DR. SALEEM. REVIEWED ELECTRONIC MEDICAL RECORD AND ATTEMPTED X 2 TO SEE PATIENT FOR EVALUATION, HOWEVER PATIENT WAS OFF FLOOR FOR DIALYISIS BOTH OCCASIONS. WILL FOLLOW UP WITH PATIENT NEXT DAY FOR EVALUATION. INTERDISCIPLINARY COMMUNICATION: REVIEWED ELECTRONIC MEDICAL RECORD Therapist: Lorelei Mora, OTR/L Signature on file
--- NOTE | 2016-09-28 16:43 | PD.CONS ---
Consult Service Palliative Care Consult Requested By Dr. Nogueira . Primary Care Physician Constance Doe MD Reason for Consultation a. To assist with evaluation and management of symptoms including: pain, confusion, weakness b. To assist medical decision maker(s) with: better understanding of current medical conditions; weighing benefits/burdens of medical treatment options; making medical treatment decisions. . (Purvi Wong) HPI History of Present Illness Mr. Arias is a 85-year-old male with a history of ESRD on dialysis, diabetes, GERD, hypertension, hyperlipidemia and hypothyroidism. The patient presented to [facility] in [place] on 09/27/16 for evaluation of progressively worsening weakness and frequent falls. The patient has had 4 hospitalizations in the past 5 months and his verbalized goals have been aggressive each time. However upon discharge the patient typically refuses rehabilitation and/or home health care. He is a poor historian and difficult to communicate with. On presentation to the ED, the patient reported he had been feeling weak for several days and had fallen the day before landing on his back, reporting back pain. Additional diagnostic findings in the ED include: * Vital signs: Pulse 94, respirations 20, BP 156/71, oxygen saturation 98% on room air, temperature 98.5 orally * WBC: 1.1, hemoglobin 9.9, hematocrit 32.1, platelets 262, neutrophils 77.6% * Sodium: 140, potassium 4.4, chloride 105, carbon dioxide 29.1, random glucose 166, calcium 8.8, magnesium 2.0 * BUN: 25, creatinine 3.63, GFR 16 * Total bilirubin 0.3, AST 16, ALT 16 * Alkaline phosphatase: 218 * Total creatine kinase: 124 * CK-MB: 2.6 * Troponin: 0.04 total protein: 7.0, albumin 3.1 * Pelvis x-ray: Degenerative changes of both hips, no fracture seen. * Lumbar spine x-ray: Severe diffuse degenerative changes, no acute bony findings * CT brain: Stable grandparents, no acute intracranial findings. * Chest x-ray: Small right pleural effusion and right basilar density likely atelectasis * EKG shows NSR, no ST elevation or depression, and no arrhythmias. No significant T-wave inversions. On exam the patient reported back pain and inability to walk. Imaging showed diffuse degenerative changes. Neurology was consulted. In the past, the patient has refused rehabilitation and/or home health visits, also refusing AVF creation. He has poor insight, lives alone, has no social/family support. Patient is typically dialyzed on T-TH-SAT. The patient requested to limit treatment duration or frequency of weekly treatments. Nephrology saw the patient and explained that doing dialysis either of those ways would be an effective. Treatment options were discussed, including transitioning to comfort focused care. Palliative Care was consulted to assist with symptom management and to discuss with the patient the benefits and burdens of his current illnesses and the options regarding future care. Palliative care is familiar with this patient from his previous hospitalizations. Historically the patient's medical treatment goals has been unclear. The patient's was unclear again today when discussing his goals of care. He first stated he wanted to stop dialysis and go home, and then stating he wanted to go to rehabilitation and get stronger. He does not appear to have a good understanding of his treatment options and the associated consequences. . Function/Cognitive Trajectory Mr. Arias is an 85-year-old male who reportedly lives alone. He appears cachectic, although he states he has a very good appetite. BMI: 19.4 Mr. Arias has been hospitalized 5 times since April,. He recently began hemodialysis 3 days weekly. However patient is not tolerating dialysis and has recently missed appointments. He has fallen 3 times in the past week and complains of progressively worsening generalized weakness. Patient states he lives alone and he is frightened and unable to ambulate. Previously patient has refused rehabilitation and home health visits. . (Purvi Wong) Review of Systems ROS Limitations: Altered Mental Status, Poor Historian Constitutional: COMPLAINS OF: Fatigue, Change in appetite, Pain, Generalized weakness Ears, nose, mouth, throat: DENIES: Epistaxis Musculoskeletal: COMPLAINS OF: Back pain, Decreased range of motion Hematologic/Lymphatics: COMPLAINS OF: Bruising Neurologic: COMPLAINS OF: Abnormal gait, Localized weakness, Poor Balance Psychiatric: COMPLAINS OF: Anxiety, Confusion (Purvi Wong) Past Family Social History Coded Allergies: No Known Allergies (Verified , 09/27/16) Past Medical History ESRD on hemodialysis Diabetes mellitus GERD Hypertension Hyperlipidemia Hypothyroidism . Past Surgical History Bilateral eye surgeries . Reported Medications Eliquis (Apixaban) 2.5 Mg Tab 2.5 Mg PO BID Levemir Inj (Insulin Detemir) 1,000 unit/ 10 ML Vial 8 Units SQ DAILY Do not mix with any other Insulin. Aspirin 81 Mg Tabdr 81 Mg PO DAILY . Current Medications Medications (Trade) Dose Ordered Sig/Ganesh Route Start Time Stop Time Status Last Admin (NS Flush) 2 ml UNSCH PRN FLUSH 09/27/16 16:30 (NS Flush) 2 ml BID FLUSH 09/27/16 21:00 09/28/16 09:03 (Tylenol) 650 mg Q4H PRN PO 09/27/16 16:30 (Dulcolax Supp) 10 mg DAILY PRN OR 09/27/16 16:30 (Colace) 100 mg Q12H PO 09/27/16 16:30 (Milk Of Magnesia Liq) 30 ml Q12H PRN PO 09/27/16 16:30 (Senokot) 17.2 mg Q12H PRN PO 09/27/16 16:30 (Narcan Inj) 0.4 mg UNSCH PRN IV 09/27/16 16:30 (D50w (Vial) Inj) 25 ml UNSCH PRN IV PUSH 09/27/16 18:45 (Glucagon Inj) 1 mg UNSCH PRN OTHER 09/27/16 18:45 (Ecotrin Ec) 81 mg DAILY PO 09/28/16 09:00 09/28/16 09:02 (Flexeril) 10 mg TID PO 09/28/16 09:00 09/28/16 09:02 ([place] 5-325 Mg) 1 tab Q6H PRN PO 09/27/16 18:45 (Levemir Inj) 8 units DAILY SQ 09/28/16 09:00 09/28/16 09:02 Metoprolol Tartrate 25 mg 25 mg Q12HR PO 09/27/16 21:00 09/28/16 09:02 (NS 1000 ml Inj) 1,000 ml @ 0 mls/hr Q0M PRN IV 09/28/16 08:38 09/28/16 13:00 Heparin Sodium (Porcine) 8000 units 8,000 units UNSCH PRN IVF 09/28/16 08:45 Sodium Chloride 1,000 ml @ 200 mls/hr Q5H PRN IV 09/28/16 08:38 (NS 1000 ml Inj) 1,000 ml @ 0 mls/hr Q0M PRN IV 09/28/16 08:38 09/28/16 13:00 (Mannitol Inj) 12.5 gm UNSCH PRN IV 09/28/16 08:45 (Albumin 25% Inj) 25 gm UNSCH PRN IV 09/28/16 08:45 (NS Flush) 5 ml UNSCH PRN IVF 09/28/16 08:45 (Heparin Inj) UNSCH PRN .XX 09/28/16 08:45 09/28/16 13:01 (Gentamicin (Dialysis) Inj) 20 mg UNSCH PRN IV 09/28/16 08:45 09/28/16 13:00 (Zofran Inj) 4 mg UNSCH PRN IV 09/28/16 08:45 (Tylenol) 650 mg UNSCH PRN PO 09/28/16 08:45 (Benadryl) 25 mg UNSCH PRN PO 09/28/16 08:45 (Nitrostat Sl) 0.4 mg UNSCH PRN SL 09/28/16 08:45 (Catapres) 0.1 mg UNSCH PRN PO 09/28/16 08:45 (Epogen Inj) 7,500 units UNSCH PRN IV 09/28/16 08:45 (Gelfoam 12 Mm/7 Mm Top) 1 foam UNSCH PRN TOP 09/28/16 08:45 (Eliquis) 2.5 mg BID PO 09/28/16 21:00 . Family History Patient is a poor historian, unknown family history. . Substance Use Tobacco: Previous smoker, quit 40 years ago. Alcohol: None known Prescription med abuse: None known Illicits: None known . Psychosocial History Psychosocial history was obtained via interview with patient. Patient is a poor historian. Patient has intermittent confusion and perhaps some underlying dementia. The patient states he is is originally from [place]. He stated he was to Cynthia Arias. Together they had 2 sons, Tobias Arias and Nacho Arias. The patient states his him and took the boys and everything he had. He states he was in school at the time, and he thinks his was angry and that's why she left him. 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 He states he has no contact with his family, but would like to reconcile with his sons and his ex-. . Spiritual/Cultural Factors None known. . (MarvinPurvi KENNY) Ethical and Legal Issues Forwarded from Palliative Care MOLD OPERATOR, Nikkie Mendoza: In past admissions Mr. Arias has reported he has no one to appoint as health care surrogate and has refused to complete living will should he become incapacitated to make his own medical decisions. On previous admission [employer] report was ran in an attempt to find 2 sons. Reportedly Mr. Arias has not been in contact with his sons for 20 years. Potential matches to patient's son via [employer] report, previous notes (06/01/16 ; 06/04/16) was unable to reach and no call back. * Nacho Arias (son): [phone]--- Was able to get in touch with Nacho today. Confirmed his name. Inquired if he was the son of Mr. Lloyd Arias and he states, "No, goodbye" and hung up. * Tobias Arias (son): [phone]-- attempted to call today, message indicating "at the subscribers request, this phone is not taking incoming calls " . (MarvinPurvi KENNY) Physical Exam Vital Signs Date Time Temp Pulse Resp B/P Pulse Ox O2 Delivery O2 Flow Rate FiO2 09/28/16 11:55 97.4 66 18 147/72 97 09/28/16 11:55 98.0 56 16 152/67 96 09/28/16 08:00 63 09/28/16 04:59 61 09/28/16 04:54 62 09/28/16 04:27 96.2 64 18 161/73 98 09/28/16 00:05 96.0 63 18 185/74 98 09/27/16 20:10 97.3 68 20 162/71 98 09/27/16 18:35 84 17 168/104 97 Room Air 09/27/16 17:29 76 16 148/69 96 Room Air 09/27/16 14:00 96 20 148/76 97 Room Air . 09/27/16 09/28/16 19:00 07:00 Intake Total 240 ml Output Total 100 ml Balance 240 ml -100 ml Intake Oral 240 ml Output Urine Total 100 ml # Bowel Movements 0 . Exam CONSTITUTIONAL/GENERAL: This is a frail, malnourished elderly male patient, in no apparent distress. TUBES/LINES/DRAINS: PIV x1, Vas-Cath SKIN: No jaundice, rashes, or lesions. Ecchymoses on upper extremities. No wounds seen anteriorly. Skin temperature appropriate. Not diaphoretic. HEAD: Atraumatic. Normocephalic. EYES: Pupils equal and round and reactive. Extraocular motions intact. No scleral icterus. No injection or drainage. Fundi not examined. ENT: Hearing grossly normal. Nose without bleeding or purulent drainage. NECK: Trachea midline. CARDIOVASCULAR: Regular rate and rhythm without murmurs, gallops, or rubs. No JVD. Peripheral pulses symmetric. RESPIRATORY/CHEST: Symmetric, unlabored respirations. Clear to auscultation. Breath sounds diminished bilaterally. No wheezes, rales, or rhonchi. GASTROINTESTINAL: Abdomen soft, non-tender, nondistended.No guarding. Bowel sounds present. GENITOURINARY: Without palpable bladder distension. MUSCULOSKELETAL: Extremities without clubbing, cyanosis, or edema. LYMPHATICS: No palpable cervical or supraclavicular adenopathy. NEUROLOGICAL: Awake, lethargic. Answering questions, following most commands. Moves all extremities. PSYCHIATRIC: No apparent hallucinations or other psychotic thought process. . (Purvi Wong) Diagnostic Tests Laboratory Laboratory Tests Test 09/27/16 09/28/16 11:45 08:39 White Blood Count 11.1 TH/MM3 9.5 TH/MM3 (4.0-11.0) (4.0-11.0) Red Blood Count 3.82 MIL/MM3 4.30 MIL/MM3 (4.50-5.90) (4.50-5.90) Hemoglobin 9.9 GM/DL 11.1 GM/DL (13.0-17.0) (13.0-17.0) Hematocrit 32.1 % 36.0 % (39.0-51.0) (39.0-51.0) Mean Corpuscular Volume 84.0 FL 83.8 FL (80.0-100.0) (80.0-100.0) Mean Corpuscular Hemoglobin 25.8 PG 25.9 PG (27.0-34.0) (27.0-34.0) Mean Corpuscular Hemoglobin 30.8 % 30.9 % Concent (32.0-36.0) (32.0-36.0) Red Cell Distribution Width 18.3 % 18.0 % (11.6-17.2) (11.6-17.2) Platelet Count 262 TH/MM3 320 TH/MM3 (150-450) (150-450) Mean Platelet Volume 7.7 FL 7.8 FL (7.0-11.0) (7.0-11.0) Neutrophils (%) (Auto) 77.6 % 75.0 % (16.0-70.0) (16.0-70.0) Lymphocytes (%) (Auto) 9.9 % 11.9 % (9.0-44.0) (9.0-44.0) Monocytes (%) (Auto) 7.0 % (0.0-8.0) 5.3 % (0.0-8.0) Eosinophils (%) (Auto) 5.0 % (0.0-4.0) 6.8 % (0.0-4.0) Basophils (%) (Auto) 0.5 % (0.0-2.0) 1.0 % (0.0-2.0) Neutrophils # (Auto) 8.6 TH/MM3 7.1 TH/MM3 (1.8-7.7) (1.8-7.7) Lymphocytes # (Auto) 1.1 TH/MM3 1.1 TH/MM3 (1.0-4.8) (1.0-4.8) Monocytes # (Auto) 0.8 TH/MM3 0.5 TH/MM3 (0-0.9) (0-0.9) Eosinophils # (Auto) 0.6 TH/MM3 0.6 TH/MM3 (0-0.4) (0-0.4) Basophils # (Auto) 0.1 TH/MM3 0.1 TH/MM3 (0-0.2) (0-0.2) CBC Comment DIFF FINAL DIFF FINAL Differential Comment Sodium Level 140 MEQ/L 140 MEQ/L (136-145) (136-145) Potassium Level 4.4 MEQ/L 4.4 MEQ/L (3.5-5.1) (3.5-5.1) Chloride Level 105 MEQ/L 102 MEQ/L (98-107) (98-107) Carbon Dioxide Level 29.1 MEQ/L 29.4 MEQ/L (21.0-32.0) (21.0-32.0) Anion Gap 6 MEQ/L (5-15) 9 MEQ/L (5-15) Blood Urea Nitrogen 25 MG/DL (7-18) 29 MG/DL (7-18) Creatinine 3.63 MG/DL 4.26 MG/DL (0.60-1.30) (0.60-1.30) Estimat Glomerular Filtration 16 ML/MIN (>89) 13 ML/MIN (>89) Rate Random Glucose 166 MG/DL 110 MG/DL (74-106) (74-106) Calcium Level 8.8 MG/DL 9.0 MG/DL (8.5-10.1) (8.5-10.1) Magnesium Level 2.0 MG/DL (1.5-2.5) Total Bilirubin 0.3 MG/DL (0.2-1.0) Aspartate Amino Transf 16 U/L (15-37) (AST/SGOT) Alanine Aminotransferase 16 U/L (12-78) (ALT/SGPT) Alkaline Phosphatase 218 U/L (45-117) Total Creatine Kinase 124 U/L (39-308) Creatine Kinase MB 2.6 NG/ML (0.5-3.6) Troponin I 0.04 NG/ML (0.02-0.05) Total Protein 7.0 GM/DL (6.4-8.2) Albumin 3.1 GM/DL (3.4-5.0) . (Purvi Wong) Result Diagram: 09/28/16 0839 09/28/16 0839 Imaging Last 72 hours Impressions Lumbar Spine MRI 09/28/16 0000 Signed Impressions: Service Date/Time: Wednesday, September 28, 2016 08:01 - CONCLUSION: Compression and horizontal cleavage fracture at the L2 level without significant loss of vertebral body height. Lobular masses or collections involving the right-sided neural foramina and paraspinal tissues at the L1 and 2 levels as described. Will Murillo MD Pelvis X-Ray 09/27/16 1033 Signed Impressions: Service Date/Time: September 10:58 - CONCLUSION: 1. Degenerative changes of both hips. No fracture seen. Jeffrey Raza MD Lumbar Spine X-Ray 09/27/163 Signed Impressions: Service Date/Time: , September 27, 2016 11:01 - CONCLUSION: Severe diffuse degenerative change. No acute bony findings. Will Murillo MD Head CT 09/27/16 1033 Signed Impressions: Service Date/Time: September 11:50 - CONCLUSION: Stable brain appearance. No acute intracranial findings. Will Murillo MD Chest X-Ray 09/27/16 1033 Signed Impressions: Service Date/Time: September 10:53 - CONCLUSION: 1. Small right pleural effusion and right basilar density likely atelectasis. Jeffrey Raza MD . Procedures 09/28/16: Hemodialysis . (Purvi Wong) Patient/Family Conference Present at Family Conference: Spoke with patient at bedside during hemodialysis. . Family Conference Location: Bedside Issues Discussed: * Palliative care role, purpose, approach * Additional medical, psychosocial, and spiritual history * Patients general health, functional status, and cognitive changes in the months leading up to the current hospitalization * Patient/family understanding of the current medical problems * Patient/family understanding of prognosis * Patients goals of care as best understood from advance directives and/or conversations and/or values * Current medical treatment options and benefits/burdens of those options * Likely scenarios comparing ongoing aggressive care with a transition to comfort measures only * Questions answered to the best of my ability * Palliative care contact information provided . (Purvi Wong) Assessment and Plan Disease Oriented Problem List: (1) Malnutrition (2) HTN (hypertension) (3) End stage renal disease (4) Anxiety (5) Diabetes (6) History of hypertension Symptom Scale: (1) Pain Comment: Imaging showed severe degenerative changes in lumbar spine. Neurosurgery has been consulted. . (2) Weakness Comment: Patient has had 3 falls in the past week, stating he is unable to ambulate. Pertinent Non-Medical Issues Psychosocial: Psychosocial history was obtained via interview with patient. Patient is a poor historian. Patient has intermittent confusion and perhaps some underlying dementia. The patient states he is is originally from [place]. He stated he was to Cynthia Arias. Together they had 2 sons, Tobias Arias and Nacho Arias. The patient states his him and took the boys and everything he had. He states he was in school at the time, and he thinks his was angry and that's why she left him. 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 He states he has no contact with his family, but would like to reconcile with his sons and his ex-. Spiritual: None Legal: Patient reports he is . Per [place] statutes, in the absence of written advanced directives healthcare proxy decision making would fall to the majority of the patient's adult children. Ethical issues impacting care: Forwarded from Palliative Care MOLD OPERATOR, Nikkie Mendoza: In past admissions Mr. Arias has reported he has no one to appoint as health care surrogate and has refused to complete living will should he become incapacitated to make his own medical decisions. On previous admission [facility] report was ran in an attempt to find 2 sons. Reportedly Mr. Arias has not been in contact with his sons for 20 years. Potential matches to patient's son via [employer] [facility] report, previous notes (06/01/16 ; 06/04/16) was unable to reach and no call back. * Nacho Arias (son): [phone]--- Was able to get in touch with Nacho today. Confirmed his name. Inquired if he was the son of Mr. Lloyd Arias and he states, "No, goodbye" and hung up. * Tobias Arias (son): [phone]-- attempted to call today, message indicating "at the subscribers request, this phone is not taking incoming calls " . Important Contacts Sugey Fair, friend: [phone] Nidhi Guillaume, friend: [phone] Nacho Arias (son): [phone]--- Was able to get in touch with Nacho today. Confirmed his name. Inquired if he was the son of Mr. Lloyd Arias and he states, "No, goodbye" and hung up. Tobias Arias (son): [phone]-- attempted to call today, message indicating "at the subscribers request, this phone is not taking incoming calls" . Prognosis Mr. Arias is an 85-year-old male who reportedly lives alone. He appears cachectic, although he states he has a very good appetite. BMI: 19.4 He has fallen 3 times in the past week and complains of progressively worsening generalized weakness. Patient states he lives alone and he is frightened and unable to ambulate. Previously patient has refused rehabilitation and home health visits. Mr. Arias has been hospitalized 5 times since April,. He recently began hemodialysis 3 days weekly. However patient is not tolerating dialysis and has recently missed appointments. Nephrology states patient is not tolerating dialysis. Overall prognosis poor. . Code Status: Full Code Plan * FULL CODE * Patient unwilling to discuss CODE STATUS, rolling onto side stating " Not now. I need to rest so I can get better". * Decision-making: Patient reports he is . Per [place] statutes, in absence of written advanced directives healthcare proxy decision making would fall to the majority of the patient's adult children. * On previous admissions [facility] report was run in an attempt to find 2 sons. Reportedly Mr. Arias has not been in contact with his sons for 20 years. Potential matches to patient's son via [employer] report, previous notes (06/01/16 ; 06/04/16) was unable to reach and no call back. Nacho Arias (son): [phone]--- Was able to get in touch with Nacho today. Confirmed his name. Inquired if he was the son of Mr. Lloyd Arias and he states, "No, goodbye" and hung up. Tobias Arias (son): [phone]-- attempted to call today, message indicating "at the subscribers request, this phone is not taking incoming calls" * Goals: Goals remain aggressive, depending further conversations and identification of legal healthcare decision makers. * Discussed with Dr. Ward (nephrology) and patient's nurse. * Living well formed left at patient's bedside for review. * Palliative care contact information left patient's bedside. Care will continue to follow this patient throughout his hospitalization to establish chest, assist with symptom management and clarification of medical treatment goals . . (Purvi Wong) Thank you for the opportunity to participate in the care of Mr. Arias. . (Purvi Wong) Attestation To help prompt me to consider important information that might be impacting today's encounter and assessment, information from prior notes written by myself or my colleagues may have been "brought forward" into today's note. My signature on this note, however, is an attestation that I personally performed the exam, history, and/or decision-making noted today, and, unless otherwise indicated, the interactions with patient, family, and staff as well as the review of records all occurred today. I also attest that the listed assessment and stated plan reflect my best clinical judgment today based on the combination of historical information, prior notes, and today's exam/ interactions. When time spent is documented, it refers only to time spent today by the signer, or if indicated, combined time spent today by collaborating physician/nurse practitioner. . (Purvi Wong) Collaborating MD Comments Chart reviewed. Case discussed with palliative care SHEET METAL DUCT WORKER SUPERVISOR. Above SHEET METAL DUCT WORKER SUPERVISOR note reviewed and I concur. . (Madhav West MD) Purvi Wong Sep 28, 2016 15:03 Madhav West MD Nov 10, 2016 14:47
--- NOTE | 2016-09-28 17:01 | EKG ---
Date Performed: 09/27/2016 Time Performed: 11:18:52 PTAGE: 85 years EKG: Sinus rhythm WITH OCCASIONAL VENTRICULAR PREMATURE COMPLEXES BORDERLINE ECG PREVIOUS TRACING : 09/11/2016 17.45 Compared to previous tracing, the patient is no longer in a trial fibrillation. DOCTOR: Nilsa Williamson Interpretating Date/Time 09/28/2016 16:59:20
[2016-09-28] MEDS: APIXABAN 2.5 MG TABLET PO SCH (20:39)
[2016-09-29] VITALS (8 sets, daily range): BP systolic 97–150; BP diastolic 60–69; PULSE 64–85; RESP 18–21; TEMP 98–98.4; O2SAT 93–98
[2016-09-29] MEDS: DOCUSATE SODIUM 100 MG CAP PO SCH ×3 (04:30→17:43)
[2016-09-29] MEDS: INSULIN ASPART SUPPLEMENTAL SCALE SQ SCH ×4 (06:05→20:52)
[2016-09-29 06:53] LABS: BICARBONATE 30.4 MEQ/L (21.0-32.0)
[2016-09-29] MEDS: ASPIRIN EC 81 MG TABEC PO SCH (09:04)
[2016-09-29] MEDS: METOPROLOL TARTRATE 25 MG TAB PO SCH ×2 (09:04→20:51)
[2016-09-29] MEDS: CYCLOBENZAPRINE HCL 10 MG TAB PO SCH ×3 (09:04→18:53)
[2016-09-29] MEDS: APIXABAN 2.5 MG TABLET PO SCH ×2 (09:05→20:51)
[2016-09-29] MEDS: INSULIN DETEMIR 100 UNITS/ML VIAL SQ SCH (09:06)
[2016-09-29] MEDS: SODIUM CHLORIDE 0.9% FLUSH 5 ML FLUSH FLUSH SCH ×2 (09:06→21:29)
--- NOTE | 2016-09-29 10:12 | HHI.NPPN ---
Subjective Interval History patient was seen during dialysis. He is complaining of back pain. Objective Data Data 09/28/16 09/29/16 19:00 07:00 Intake Total 300 ml 240 ml Balance 300 ml 240 ml Intake Oral 240 ml IV Total 300 ml # Voids 2 Vital Signs Date Time Temp Pulse Resp B/P Pulse Ox O2 Delivery O2 Flow Rate FiO2 09/29/16 07:19 98.0 74 18 118/65 95 09/29/16 04:32 98.1 68 20 148/68 97 09/29/16 01:50 64 09/28/16 23:53 98.0 78 18 139/64 98 09/28/16 19:20 98.1 86 20 150/66 93 09/28/16 11:55 97.4 66 18 147/72 97 09/28/16 11:55 98.0 56 16 152/67 96 -: 09/28/16 0839 09/29/16 0518 Physical Exam General Appearance: No Acute Distress, Comfortable Neck Neck Exam: Neck Supple Pulmonary Resp Exam: Clear Bilaterally Cardiology CV Exam: Regular, Normal Sinus Rhythm Gastrointestinal/Abdomen GI Exam: Soft, Non-Tender, Bowel Sounds Present Integumentary Skin Exam: Intact Extremeties Extremities Exam: No Edema Assessment/Plan Problem List: (1) CKD (chronic kidney disease) stage 5, GFR less than 15 ml/min Plan: patient was seen and examined during dialysis. On 3K, UF goal is 1 liter. BFR 350 ml/min. I had a long discussion with him. I have informed him that if he stops dialysis he will eventually of progressive renal failure or life threatening electrolyte abnormalities. He appeared to understand the consequence of stopping dialysis. He is still thinking about it. He does not want to rehab. Wants to go home. (2) Weakness Plan: See above, has frequent falls, refusing rehab he may need Assisted living he is hospice appropriate, have recommended this option a number of times, he would like to think about it (3) Diabetes Plan: blood sugar acceptable, continue insulin as needed (4) Anemia of renal disease Plan: Hemoglobin acceptable epo if Hb < 11 (5) History of hypertension Plan: blood pressure acceptable continue oral medications as ordered Casey Ward MD Sep 29, 2016 10:12
[2016-09-29] MEDS: EPOETIN ALFA 10,000 UNITS/ML VIAL IV PRN (12:12)
[2016-09-29] MEDS: HEPARIN SODIUM - IV 10,000 UNITS/10 ML VIAL PRN (12:13)
[2016-09-29] MEDS: GENTAMICIN SULFATE (DIALYSIS USE ONLY) 20 MG/2 ML VIAL IV PRN (12:13)
--- NOTE | 2016-09-29 13:01 | HHI.PR ---
Subjective Remarks No acute issue, beside his back in, awaiting neurosurgery consultation Will probably have a placement issue with this patient since he declined rehabilitation but he had his two-weak to be on his own Objective Vitals Vital Signs Date Time Temp Pulse Resp B/P Pulse Ox O2 Delivery O2 Flow Rate FiO2 09/29/16 10:21 18 09/29/16 07:19 98.0 74 18 118/65 95 09/29/16 04:32 98.1 68 20 148/68 97 09/29/16 01:50 64 09/28/16 23:53 98.0 78 18 139/64 98 09/28/16 19:20 98.1 86 20 150/66 93 I/O 09/28/16 09/28/16 09/28/16 09/29/16 09/29/16 09/29/16 07:00 15:00 23:00 07:00 15:00 23:00 Intake Total 300 ml 240 ml Balance 300 ml 240 ml Intake Oral 240 ml IV Total 300 ml # Voids 2 Result Diagram: 09/28/16 0839 09/29/16 0518 Objective Remarks GENERAL: This is frail cachectic elderly well-developed patient, in no apparent distress. CARDIOVASCULAR: Regular rate and rhythm without murmurs, gallops, or rubs. RESPIRATORY: Clear to auscultation. Breath sounds equal bilaterally. No wheezes , rales, or rhonchi. GASTROINTESTINAL: Abdomen soft, non-tender, nondistended. Normal active bowel sounds MUSCULOSKELETAL: Extremities without clubbing, cyanosis, or edema. NEURO: Alert & Oriented x4 to person, place, time, situation. Moves all ext x4 A/P Assessment and Plan 85 years old male with past medical history of generalized weakness, ESRD, hypertension, diabetes mellitus came with Recurrent generalized Worsening lower extremity weakness, unable to walk Hypertension Chronic kidney disease ESRD on hemodialysis Diabetes mellitus Occlusive thrombus on Eliquis DVT prophylaxis resume Eliquis Plan: Patient palliative care consultation PT OT Per case management they will work on getting home health care with the patient is able to walk Personally reviewed CT of the head CT of the lumbar spine which showed severe degenerative changes, awaiting consult neurosurgery Pain management Accu-Chek, insulin sliding scale, resume his basal insulin, diabetic diet appreciate renal consultation for hemodialysis Resume her medication including Anila Tarango MD Sep 29, 2016 13:01
--- NOTE | 2016-09-29 15:44 | OTSOAPIP ---
TIME SESSION COMPLETED: AM TREATMENT TIME: 0 MINS. CHART REVIEWED. PATIENT WAS NOT AVAILABLE DUE TO RECEIVING DIALYSIS. PLAN" WILL SEE NEXT TREATMENT DAY Therapist: JOSE MONTERO OTR/Janis Signature on file
[2016-09-30] VITALS (9 sets, daily range): BP systolic 126–177; BP diastolic 60–78; PULSE 63–87; RESP 18–21; TEMP 97.5–98.8; O2SAT 95–98
[2016-09-30] MEDS: DOCUSATE SODIUM 100 MG CAP PO SCH ×2 (04:14→18:29)
[2016-09-30] MEDS: INSULIN ASPART SUPPLEMENTAL SCALE SQ SCH ×4 (06:15→22:22)
--- NOTE | 2016-09-30 08:34 | HHI.NPPN ---
Subjective Interval History Underwent dialysis yesterday. Labs were reviewed. Stable from renal standpoint. Review of Systems General Constitutional: Fatigue Musculoskeletal MS Remarks back pain Objective Data Data 09/29/16 09/30/16 19:00 07:00 Intake Total 240 ml Balance 240 ml Intake Oral 240 ml # Voids 0 # Bowel Movements 0 Vital Signs Date Time Temp Pulse Resp B/P Pulse Ox O2 Delivery O2 Flow Rate FiO2 09/30/16 07:47 97.8 72 18 177/72 96 09/30/16 04:50 98.4 87 21 151/78 98 09/29/16 23:25 98.2 71 21 150/69 93 09/29/16 21:00 85 09/29/16 19:25 66 09/29/16 19:10 98.2 72 18 134/66 98 09/29/16 15:06 98.4 69 18 97/60 94 09/29/16 10:21 18 -: 09/28/16 0839 09/29/16 0518 Physical Exam General Appearance: No Acute Distress, Comfortable Neck Neck Exam: Neck Supple Pulmonary Resp Exam: Clear Bilaterally Cardiology CV Exam: Regular, Normal Sinus Rhythm Gastrointestinal/Abdomen GI Exam: Soft, Non-Tender, Bowel Sounds Present Integumentary Skin Exam: Intact Extremeties Extremities Exam: No Edema Assessment/Plan Problem List: (1) CKD (chronic kidney disease) stage 5, GFR less than 15 ml/min Plan: He will be dialyzed TTS. He has been informed that if he stops dialysis he will eventually of progressive renal failure or life threatening electrolyte abnormalities. He appeared to understand the consequence of stopping dialysis. He is still thinking about it. He does not want to rehab. Wants to go home. (2) Weakness Plan: See above, has frequent falls, refusing rehab May need SNF, he is refusing. Hospice has been discussed, he appears to have poor insight into his medical problems. (3) Diabetes Plan: blood sugar acceptable, continue insulin as needed (4) Anemia of renal disease Plan: Hemoglobin acceptable epo if Hb < 11 (5) History of hypertension Plan: blood pressure acceptable continue oral medications as ordered Casey Ward MD Sep 30, 2016 08:34
[2016-09-30] MEDS: SODIUM CHLORIDE 0.9% FLUSH 5 ML FLUSH FLUSH SCH ×2 (09:00→22:21)
[2016-09-30] MEDS: INSULIN DETEMIR 100 UNITS/ML VIAL SQ SCH (09:26)
[2016-09-30] MEDS: APIXABAN 2.5 MG TABLET PO SCH ×2 (09:27→22:21)
[2016-09-30] MEDS: CYCLOBENZAPRINE HCL 10 MG TAB PO SCH ×3 (09:27→18:29)
[2016-09-30] MEDS: METOPROLOL TARTRATE 25 MG TAB PO SCH ×2 (09:27→22:21)
[2016-09-30] MEDS: ASPIRIN EC 81 MG TABEC PO SCH (09:27)
--- NOTE | 2016-09-30 11:02 | HHI.PR ---
Subjective Remarks Patient stated he walks much better with the back brace PT recommended rehabilitation however patient definitely declined this Discussed with pillowcase turner, patient can be discharged once safe discharge plan for him is ready Objective Vitals Vital Signs Date Time Temp Pulse Resp B/P Pulse Ox O2 Delivery O2 Flow Rate FiO2 09/30/16 07:47 97.8 72 18 177/72 96 09/30/16 04:50 98.4 87 21 151/78 98 09/29/16 23:25 98.2 71 21 150/69 93 09/29/16 21:00 85 09/29/16 19:25 66 09/29/16 19:10 98.2 72 18 134/66 98 09/29/16 15:06 98.4 69 18 97/60 94 I/O 09/29/16 09/29/16 09/29/16 09/30/16 09/30/16 09/30/16 07:00 15:00 23:00 07:00 15:00 23:00 Intake Total 240 ml 240 ml Balance 240 ml 240 ml Intake Oral 240 ml 240 ml # Voids 2 0 # Bowel Movements 0 Result Diagram: 09/28/16 0839 09/29/16 0518 Objective Remarks GENERAL: This is frail cachectic elderly well-developed patient, in no apparent distress. CARDIOVASCULAR: Regular rate and rhythm without murmurs, gallops, or rubs. RESPIRATORY: Clear to auscultation. Breath sounds equal bilaterally. No wheezes , rales, or rhonchi. GASTROINTESTINAL: Abdomen soft, non-tender, nondistended. Normal active bowel sounds MUSCULOSKELETAL: Extremities without clubbing, cyanosis, or edema. NEURO: Alert & Oriented x4 to person, place, time, situation. Moves all ext x4 A/P Assessment and Plan 85 years old male with past medical history of generalized weakness, ESRD, hypertension, diabetes mellitus came with Recurrent generalized Worsening lower extremity weakness, unable to walk Hypertension Chronic kidney disease ESRD on hemodialysis Diabetes mellitus Occlusive thrombus on Eliquis DVT prophylaxis resume Eliquis Plan: Patient palliative care consultation PT OT Per case management they will work on getting home health care with the patient is able to walk Personally reviewed CT of the head CT of the lumbar spine which showed severe degenerative changes, consult neurosurgery, patient feels better wearing back brace Pain management Accu-Chek, insulin sliding scale, resume his basal insulin, diabetic diet appreciate renal consultation for hemodialysis Resume her medication including elliquis Discharge Planning Medically stable to be discharged once safe discharge plan is ready for him, pillowcase turner is working on it Anila Watson MD Sep 30, 2016 11:02
--- NOTE | 2016-09-30 13:28 | OTSOAPIP ---
TIME SESSION COMPLETED: AM TREATMENT TIME: 0 MINS. CHART REVIEWED. ATTEMPTED TO SEE PATIENT HOWEVER PATIENT WAS NOT AVAILABLE TO THE 3RD TIME THIS WEEK. PLAN: WILL SEE PATIENT NEXT TREATMENT DAY Therapist: JOSE BENITES/Janis Signature on file
[2016-10-01] VITALS (10 sets, daily range): BP systolic 142–155; BP diastolic 62–73; PULSE 62–77; RESP 16–20; TEMP 97.4–98.3; O2SAT 95–98
[2016-10-01] MEDS: DOCUSATE SODIUM 100 MG CAP PO SCH ×2 (04:30→16:30)
[2016-10-01] MEDS: INSULIN ASPART SUPPLEMENTAL SCALE SQ SCH ×4 (06:22→21:19)
[2016-10-01] MEDS: SODIUM CHLORIDE 0.9% FLUSH 5 ML FLUSH FLUSH SCH ×2 (08:39→21:00)
[2016-10-01] MEDS: INSULIN DETEMIR 100 UNITS/ML VIAL SQ SCH (08:39)
[2016-10-01] MEDS: METOPROLOL TARTRATE 25 MG TAB PO SCH ×2 (08:40→21:19)
[2016-10-01] MEDS: ASPIRIN EC 81 MG TABEC PO SCH (08:40)
[2016-10-01] MEDS: APIXABAN 2.5 MG TABLET PO SCH ×2 (08:40→21:19)
[2016-10-01] MEDS: CYCLOBENZAPRINE HCL 10 MG TAB PO SCH ×3 (08:40→16:44)
--- NOTE | 2016-10-01 08:49 | MB ---
cc: JASON NAVARRETE M.D., ROHIT K. M.D. DATE OF CONSULTATION: 09/28/2016 REASON FOR CONSULTATION Intractable lower back pain. HISTORY OF PRESENT ILLNESS An 85-year-old gentleman who presented to the emergency room with complaints of severe back pain after a fall for the past couple of days. He also related generalized weakness and difficulty ambulating because of this along with the pain. X-rays of the lumbar spine obtained revealed extensive multilevel degenerative changes and on the MRI scan of the lumbar spine he was found to have an L2 vertebral body fracture without any significant vertebral body height collapse. This is a compression and horizontal fracture. There are extensive multilevel degenerative changes also noted. PAST MEDICAL HISTORY 1. End-stage renal disease on hemodialysis. 2. Diabetes mellitus. 3. Hypertension. 4. Chronic low back pain. 5. Hyperlipidemia. 6. Eye surgery. MEDICATIONS PRIOR TO ADMISSION 1. Eliquis 2.5 mg b.i.d. 2. Aspirin 81 mg daily. 3. Flexeril 10 mg t.i.d. 4. Lortab 5/325 one q.6 hours. 5. Insulin daily 8 units Levemir. 6. Metoprolol 25 mg q.12 hours. ALLERGIES NO KNOWN DRUG ALLERGIES. SOCIAL HISTORY He is single. He is retired. Denies any history of smoking. He drinks alcohol on occasional basis. LABORATORY STUDIES White blood cell count 9.5, hemoglobin 11.1, platelet count 320. Sodium 140, potassium 4.4, BUN 29, creatinine 4.26, glucose 110. PHYSICAL EXAMINATION VITAL SIGNS: Temperature 97.4, pulse is 66, respiratory rate 18, blood pressure 147/72, oxygen saturation 96% on room air. HEAD: Normocephalic, atraumatic. NECK: Supple. CHEST: Clear bilaterally. HEART: Regular, rate and rhythm. Normal S1 and S2. ABDOMEN: Soft, nontender. EXTREMITIES: No cyanosis or edema. NEUROLOGIC: He is awake, alert, he is not fully oriented but does seem cognizant of his current medical condition. His cranial nerves are grossly intact. He moves all four extremities with good strength. Negative Babinski. Light touch sensation intact. Speech is fluent. IMPRESSION L2 vertebral body horizontal fracture with mild compression deformity after a fall several days ago with associate back pain. PLAN I recommended an LSO brace when out bed to help with fracture healing along with the physical therapy and rehabilitation. Followup in the office in six weeks if he so chooses with x-rays to assess the fracture healing, but he was informed that the fracture may take four months to completely heal. He was also contemplating Hospice placement and not undergo any further hemodialysis for his end-stage renal disease also. MD DAVIDA Rea/DINO /4:43 PM /8:49 AM
--- NOTE | 2016-10-01 09:05 | HHI.NPPN ---
Subjective Complaints: Confused General Problems: Anemia Renal Failure: Chronic, End Stage Renal Disease Interval History He is resting quietly. Has been evaluated by neurosurgery, has been given back brace. No acute nursing concerns. (Jahaira Nogueira) Review of Systems General Constitutional: Fatigue (Jahaira Nogueira) Musculoskeletal MS Remarks back pain (Jahaira Nogueira) Objective Data Data Vital Signs Date Time Temp Pulse Resp B/P Pulse Ox O2 Delivery O2 Flow Rate FiO2 10/01/16 08:40 70 10/01/16 08:30 98.3 62 18 151/69 95 10/01/16 04:26 97.4 65 20 146/73 96 10/01/16 04:00 71 10/01/16 00:00 77 09/30/16 23:35 97.5 63 20 148/67 95 09/30/16 20:00 75 09/30/16 19:53 97.7 68 20 143/77 97 09/30/16 18:44 70 09/30/16 18:34 70 09/30/16 14:53 97.6 64 18 133/63 96 09/30/16 11:14 98.8 72 18 126/60 96 (Jahaira Nogueira) -: 09/28/16 0839 09/29/16 0518 Physical Exam General Appearance: No Acute Distress, Comfortable, Malnourished (Jahaira Nogueira) Neck Neck Exam: Neck Supple (Jahaira Nogueira) Pulmonary Resp Exam: Clear Bilaterally (Jahaira Nogueira) Cardiology CV Exam: Regular, Normal Sinus Rhythm (Jahaira Nogueira) Gastrointestinal/Abdomen GI Exam: Soft, Non-Tender, Bowel Sounds Present (Jahaira Nogueira) Musculoskeletal MS Exam: Joints Intact, Atrophy (Jahaira Nogueira) Integumentary Skin Exam: Warm, Dry, Intact (Jahaira Nogueira) Extremeties Extremities Exam: No Edema, Pedal Pulses Palpable (Jahaira Nogueira) Neurologic Neuro Exam: Awake, Speech Clear, Moving All Extremities (Jahaira Nogueira) Assessment/Plan Discussed Condition With: Patient Assessment Summary: Anemia of CKD Problem List: (1) CKD (chronic kidney disease) stage 5, GFR less than 15 ml/min Plan: He will be dialyzed TTS, due tomorrow We again discussed stopping dialysis because he reports he cannot continue and is feeling weaker. He is still thinking about it. He does not want to rehab. He wants to go home. No electrolyte concerns. Monitor PermCath function. He has been informed that if he stops dialysis he will eventually of progressive renal failure or life threatening electrolyte abnormalities. He appeared to understand the consequence of stopping dialysis. (2) Weakness Plan: See above, has frequent falls, refusing rehab S/P fall, has been evaluated by neurosurgery, given low back brace Palliative care has evaluated, continues to have poor insight into his medical problems. (3) Diabetes Plan: blood sugar acceptable, not requiring short acting insulin (4) Anemia of renal disease Plan: Hemoglobin acceptable epo if Hb < 11 (5) History of hypertension Plan: blood pressure acceptable continue oral medications as ordered (Jahaira Nogueira) Plan patient was seen and examined. Patient is refusing rehab. Poor insight into his medical condition. Dialysis is scheduled for tomorrow. (Casey Ward MD) Jahaira Nogueira Oct 01, 2016 09:05 Casey Ward MD Oct 01, 2016 09:44
--- NOTE | 2016-10-01 10:53 | HHI.PR ---
Subjective Remarks Sitting on the edge of the bed eating I discussed with him extensively and explained to him the importance of wearing the brace as well as doing the physical therapy Patient adamantly and definitely refused to go to rehabilitation but he is okay to go home with home health care Discussed with rn case mgr she is working on it, however patient lives alone so needs to make sure he is safe to be discharged and not going to come right back as usual Objective Vitals Vital Signs Date Time Temp Pulse Resp B/P Pulse Ox O2 Delivery O2 Flow Rate FiO2 10/01/16 08:40 70 10/01/16 08:30 98.3 62 18 151/69 95 10/01/16 04:26 97.4 65 20 146/73 96 10/01/16 04:00 71 10/01/16 00:00 77 09/30/16 23:35 97.5 63 20 148/67 95 09/30/16 20:00 75 09/30/16 19:53 97.7 68 20 143/77 97 09/30/16 18:44 70 09/30/16 18:34 70 09/30/16 14:53 97.6 64 18 133/63 96 09/30/16 11:14 98.8 72 18 126/60 96 Result Diagram: 09/28/16 0839 09/29/16 0518 Objective Remarks GENERAL: This is frail cachectic elderly well-developed patient, in no apparent distress. CARDIOVASCULAR: Regular rate and rhythm without murmurs, gallops, or rubs. RESPIRATORY: Clear to auscultation. Breath sounds equal bilaterally. No wheezes , rales, or rhonchi. GASTROINTESTINAL: Abdomen soft, non-tender, nondistended. Normal active bowel sounds MUSCULOSKELETAL: Extremities without clubbing, cyanosis, or edema. NEURO: Alert & Oriented x4 to person, place, time, situation. Moves all ext x4 A/P Assessment and Plan 85 years old male with past medical history of generalized weakness, ESRD, hypertension, diabetes mellitus came with Recurrent generalized Worsening lower extremity weakness, unable to walk Hypertension Chronic kidney disease ESRD on hemodialysis Diabetes mellitus Occlusive thrombus on Eliquis DVT prophylaxis resume Eliquis Plan: Appreciate neurosurgery consultation, recommended conservative management with back brace and intense physical therapy, patient continued to refuse rehabilitation D/W rn case mgr, will try to plan for discharging home with home health care however patient lives alone, so once he is safe for that plan we will discharge him Appreciate palliative care consultation PT OT Per case management they will work on getting home health care with the patient is able to walk Personally reviewed CT of the head CT of the lumbar spine which showed severe degenerative changes, consult neurosurgery, patient feels better wearing back brace Pain management Accu-Chek, insulin sliding scale, resume his basal insulin, diabetic diet appreciate renal consultation for hemodialysis Resume her medication including elliquis Discharge Planning Medically stable to be discharged once safe discharge plan is ready for him, rn case mgr is working on it Anila Watson MD Oct 01, 2016 10:53
--- NOTE | 2016-10-01 12:38 | HHI.HCPN ---
Reason for visit a. To assist with evaluation and management of symptoms including: pain, confusion, weakness b. To assist medical decision maker(s) with: better understanding of current medical conditions; weighing benefits/burdens of medical treatment options; making medical treatment decisions. . Subjective/Interval History Mr. Arias is a 85-year-old male with a history of ESRD on dialysis, diabetes, GERD, hypertension, hyperlipidemia and hypothyroidism. The patient presented to [facility] in [place] on 09/27/16 for evaluation of progressively worsening weakness and frequent falls. Patient seen and assessed in [facility]. He presented with eyes closed, face relaxed, arouses easily to verbal stimuli. CT of the lumbar spine which showed severe degenerative changes, neurosurgery was consulted. Patient feels better wearing back brace, stating he was able to ambulate with walker and PT told him "he did good". Patient typically refuses rehabilitation and/or home health care, but stating today he will participate in rehab to "strengthen the muscles in his back " so he can safely return to his home. On hemodialysis T-TH-SAT. The patient had requested to limit treatment duration or frequency of weekly treatments. Nephrology explained to the patient that doing dialysis either of those ways would be ineffective, discussed the consequences of stopping dialysis and explained hospice and palliative care services. When the patient was asked today what would happen if he stopped his dialysis, he said he didn't know. He asked why we couldn't "fix" his kidneys. He did not want to discuss hospice or palliative care. Attempted to discuss health care surrogate designation, but patient clinically stated you always asked me that "... What if ? Well, I'm not " and rolled over, closing his eyes. . Objective Vital Signs Date Time Temp Pulse Resp B/P Pulse Ox O2 Delivery O2 Flow Rate FiO2 10/01/16 08:40 70 10/01/16 08:30 98.3 62 18 151/69 95 10/01/16 04:26 97.4 65 20 146/73 96 10/01/16 04:00 71 10/01/16 00:00 77 09/30/16 23:35 97.5 63 20 148/67 95 09/30/16 20:00 75 09/30/16 19:53 97.7 68 20 143/77 97 09/30/16 18:44 70 09/30/16 18:34 70 09/30/16 14:53 97.6 64 18 133/63 96 . Physical Exam CONSTITUTIONAL/GENERAL: This is a frail, malnourished elderly male patient, in no apparent distress. TUBES/LINES/DRAINS: PIV x1, Vas-Cath SKIN: No jaundice, rashes, or lesions. Ecchymoses on upper extremities. Skin temperature appropriate. Not diaphoretic. HEAD: Atraumatic. Normocephalic. EYES: Pupils equal and round and reactive. Extraocular motions intact. No scleral icterus. No injection or drainage. Fundi not examined. ENT: Hearing grossly normal. Nose without bleeding or purulent drainage. NECK: Trachea midline. CARDIOVASCULAR: Regular rate and rhythm without murmurs, gallops, or rubs. No JVD. Peripheral pulses symmetric. RESPIRATORY/CHEST: Symmetric, unlabored respirations. Clear to auscultation. Breath sounds diminished bilaterally. No wheezes, rales, or rhonchi. GASTROINTESTINAL: Abdomen soft, non-tender, nondistended. Bowel sounds present. GENITOURINARY: Without palpable bladder distension. MUSCULOSKELETAL: Extremities without clubbing, cyanosis, or edema. NEUROLOGICAL: Arouse to verbal stimuli, intermittent confused. Answering questions. Following most commands. Moves all extremities. Patient does not show insight or understanding r/t his conditions and current treatments. PSYCHIATRIC: No apparent hallucinations or other psychotic thought process. . Diagnostic Tests Laboratory Laboratory Tests Test 09/29/16 05:18 Sodium Level 140 MEQ/L (136-145) Potassium Level 4.0 MEQ/L (3.5-5.1) Chloride Level 100 MEQ/L (98-107) Carbon Dioxide Level 30.4 MEQ/L (21.0-32.0) Anion Gap 10 MEQ/L (5-15) Blood Urea Nitrogen 18 MG/DL (7-18) Creatinine 2.99 MG/DL (0.60-1.30) Estimat Glomerular Filtration 20 ML/MIN (>89) Rate Random Glucose 58 MG/DL (74-106) Calcium Level 8.4 MG/DL (8.5-10.1) Phosphorus Level 3.2 MG/DL (2.5-4.9) Albumin 2.7 GM/DL (3.4-5.0) Result Diagram: 09/28/16 0839 09/29/16 0518 Procedures 09/28/16: Hemodialysis . Assessment and Plan Disease Oriented Problem List: (1) Malnutrition (2) HTN (hypertension) (3) End stage renal disease (4) Anxiety (5) Diabetes (6) History of hypertension Symptom Scale: (1) Pain Comment: Imaging showed severe degenerative changes in lumbar spine. Neurosurgery has been consulted. . (2) Weakness Comment: Patient has had 3 falls in the past week, stating he is unable to ambulate. Pertinent Non-Medical Issues Psychosocial: Psychosocial history was obtained via interview with patient. Patient is a poor historian. Patient has intermittent confusion and perhaps some underlying dementia. The patient states he is is originally from [facility]. He stated he was to Cynthia Arias. Together they had 2 sons, Tobias Arias and Nacho Arias. The patient states his him and took the boys and everything he had. He states he was in school at the time, and he thinks his was angry and that's why she left him. 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 He states he has no contact with his family, but would like to reconcile with his sons and his ex-. Spiritual: None Legal: Patient reports he is . Per [place] statutes, in the absence of written advanced directives healthcare proxy decision making would fall to the majority of the patient's adult children. Ethical issues impacting care: Forwarded from Palliative Care [facility]ER, Nikkie Mendoza: In past admissions Mr. Arias has reported he has no one to appoint as health care surrogate and has refused to complete living will should he become incapacitated to make his own medical decisions. On previous admission [employer] report was ran in an attempt to find 2 sons. Reportedly Mr. Arias has not been in contact with his sons for 20 years. Potential matches to patient's son via [employer] report, previous notes (06/01/16 ; 06/04/16) was unable to reach and no call back. * Nacho Arias (son): [phone]--- Was able to get in touch with Nacho today. Confirmed his name. Inquired if he was the son of Mr. Lloyd Arias and he states, "No, goodbye" and hung up. * Tobias Arias (son): [phone]-- attempted to call today, message indicating "at the subscribers request, this phone is not taking incoming calls " . Important Contacts Sugey Manjula, friend: [phone] Nidhi Guillaume, friend: [phone] Nacho Arias (son): [phone]--- Was able to get in touch with Nacho today. Confirmed his name. Inquired if he was the son of Mr. Lloyd Arias and he states, "No, goodbye" and hung up. Tobias Arias (son): [phone]-- attempted to call today, message indicating "at the subscribers request, this phone is not taking incoming calls" . Prognosis Mr. Arias is an 85-year-old male who reportedly lives alone. He appears cachectic, although he states he has a very good appetite. BMI: 19.4 He has fallen 3 times in the past week and complains of progressively worsening generalized weakness. Patient states he lives alone and he is frightened and unable to ambulate. Previously patient has refused rehabilitation and home health visits. Mr. Arias has been hospitalized 5 times since April,. He recently began hemodialysis 3 days weekly. However patient is not tolerating dialysis and has recently missed appointments. Nephrology states patient is not tolerating dialysis. Overall prognosis poor. . Code Status: Full Code Plan * FULL CODE * Decision-making: Patient reports he is . Per [place] statutes, in absence of written advanced directives healthcare proxy decision making would fall to the majority of the patient's adult children. * On previous admissions [employer] report was run in an attempt to find 2 sons. Reportedly Mr. Arias has not been in contact with his sons for 20 years. Potential matches to patient's son via [employer] report, previous notes (06/01/16 ; 06/04/16) was unable to reach and no call back. Nacho Arias (son): --- Was able to get in touch with Nacho today. Confirmed his name. Inquired if he was the son of Mr. Lloyd Arias and he states, "No, goodbye" and hung up. Tobias Arias (son): [phone]-- attempted to call today, message indicating "at the subscribers request, this phone is not taking incoming calls" * Goals: Regain strength and return home. * CT of the lumbar spine which showed severe degenerative changes, neurosurgery was consulted. Patient feels better wearing back brace, stating he was able to ambulate with walker and PT told him "he did good". * Patient typically refuses rehabilitation and/or home health care, but stating today he will participate in rehab to "strengthen the muscles in his back " so he can safely return to his home. * The patient had requested to limit treatment duration or frequency of weekly treatments. Nephrology explained to the patient that doing dialysis either of those ways would be ineffective, discussed the consequences of stopping dialysis and explained hospice and palliative care services. When the patient was asked today what would happen if he stopped his dialysis, he said he didn't know. He asked why we couldn't "fix" his kidneys. He did not want to discuss hospice or palliative care. * Attempted to discuss health care surrogate designation, but patient clinically stated you always asked me that "... What if ? Well, I'm not " and rolled over, closing his eyes. * Palliative care contact information left patient's bedside. Care will continue to follow this patient throughout his hospitalization to establish chest, assist with symptom management and clarification of medical treatment goals . Attestation To help prompt me to consider important information that might be impacting today's encounter and assessment, information from prior notes written by myself or my colleagues may have been "brought forward" into today's note. My signature on this note, however, is an attestation that I personally performed the exam, history, and/or decision-making noted today, and, unless otherwise indicated, the interactions with patient, family, and staff as well as the review of records all occurred today. I also attest that the listed assessment and stated plan reflect my best clinical judgment today based on the combination of historical information, prior notes, and today's exam/ interactions. When time spent is documented, it refers only to time spent today by the signer, or if indicated, combined time spent today by collaborating physician/nurse practitioner. . Purvi Wong Oct 01, 2016 12:37
[2016-10-02] MEDS: DOCUSATE SODIUM 100 MG CAP PO SCH ×2 (04:30→13:18)
[2016-10-02 04:59] VITALS: BP 162/81; PULSE 73; RESP 20; TEMP 96.8; O2SAT 93
[2016-10-02] MEDS: INSULIN ASPART SUPPLEMENTAL SCALE SQ SCH ×3 (07:00→16:00)
[2016-10-02 07:21] VITALS: BP 164/72; PULSE 69; RESP 16; TEMP 97.9; O2SAT 94
[2016-10-02] MEDS: SODIUM CHLORIDE 0.9% FLUSH 5 ML FLUSH FLUSH SCH (09:00)
[2016-10-02] MEDS: METOPROLOL TARTRATE 25 MG TAB PO SCH ×2 (09:00→13:18)
--- NOTE | 2016-10-02 09:23 | HHI.NPPN ---
Subjective Complaints: Confused General Problems: Anemia Renal Failure: Chronic, End Stage Renal Disease Interval History Sitting up, eating breakfast. Due for dialysis today. (Jahaira Nogueira) Review of Systems General Constitutional: Fatigue (Jahaira Nogueira) Musculoskeletal MS Remarks back pain (Jahaira Nogueira) Objective Data Data Vital Signs Date Time Temp Pulse Resp B/P Pulse Ox O2 Delivery O2 Flow Rate FiO2 10/02/16 07:21 97.9 69 16 164/72 94 10/02/16 04:59 96.8 73 20 162/81 93 10/01/16 23:42 98.1 63 20 147/68 98 10/01/16 21:30 72 10/01/16 20:37 98.1 69 20 155/69 98 10/01/16 16:54 98.1 68 16 150/69 97 10/01/16 12:52 97.9 64 16 142/62 95 (Jahaira Nogueira) -: 09/28/16 0839 09/29/16 0518 Physical Exam General Appearance: No Acute Distress, Comfortable, Malnourished (Jahaira Nogueira) Throat Throat Exam: Oral Mucosa [place] & Moist (Jahaira Nogueira) Neck Neck Exam: Neck Supple (Jahaira Nogueira) Pulmonary Resp Exam: Clear Bilaterally, Breath Sounds Equal (Jahaira Nogueira) Cardiology CV Exam: Regular, Normal Sinus Rhythm (Jahaira Nogueira) Gastrointestinal/Abdomen GI Exam: Soft, Non-Tender, Bowel Sounds Present (Jahaira Nogueira) Musculoskeletal MS Exam: Joints Intact, Atrophy (Jahaira Nogueira) Integumentary Skin Exam: Warm, Dry, Intact (Jahaira Nogueira) Extremeties Extremities Exam: No Edema, Pedal Pulses Palpable (Jahaira Nogueira) Neurologic Neuro Exam: Awake, Oriented, Speech Clear, Moving All Extremities (Jahaira Nogueira) Assessment/Plan Discussed Condition With: Patient Assessment Summary: Anemia of CKD, Malnutrition Problem List: (1) CKD (chronic kidney disease) stage 5, GFR less than 15 ml/min Plan: He will be dialyzed TTS, due today He does not want to rehab. He wants to go home. Recent electrolyte panel acceptable After dialysis he can be discharged, he does not have insight into risks of staying alone but adamantly refusing placement as he has had a bad experience in the past. PermCath functioning well (2) Weakness Plan: See above, has frequent falls, refusing rehab S/P fall, has been evaluated by neurosurgery, given low back brace Palliative care has evaluated, continues to have poor insight into his medical problems. (3) Diabetes Plan: blood sugar acceptable, not requiring short acting insulin (4) Anemia of renal disease Plan: Hemoglobin acceptable epo if Hb < 11 (5) History of hypertension Plan: blood pressure acceptable continue oral medications as ordered (Jahaira Nogueira) Plan patient was seen and examined. Agree with above assessment and plan. He is refusing placement in rehab, wants to go home. Dialysis today. (Casey Ward MD) Jahaira Nogueira Oct 02, 2016 09:23 Casey Ward MD Oct 02, 2016 10:45
[2016-10-02] MEDS: GENTAMICIN SULFATE (DIALYSIS USE ONLY) 20 MG/2 ML VIAL IV PRN (12:30)
[2016-10-02] MEDS: EPOETIN ALFA 10,000 UNITS/ML VIAL IV PRN (12:30)
--- NOTE | 2016-10-02 12:44 | HHI.DS ---
Discharge Summary Admission Date Sep 27, 2016 at 16:19 Discharge Date: Oct 02, 2016 Admitting Diagnosis inability to ambulate/general weakness (1) Muscular deconditioning ICD Code: R29.898 (2) Weakness ICD Code: R53.1 (3) Occlusive thrombus ICD Code: I82.90 (4) Dementia ICD Code: F03.90 (5) Unable to ambulate ICD Code: R26.2 (6) Diabetes ICD Code: E11.9 (7) Pain ICD Code: R52 (8) HTN (hypertension) ICD Code: I10 (9) Lower back pain ICD Code: M54.5 Procedures none Brief History - From Admission 85 years old male with history of ESRD on hemodialysis, hypertension, diabetes mellitus, chronic generalized weakness, who is known to our service from multiple previous admission, patient usually refused rehabilitation or even home health care, but yet he lives alone, he is very poor historian and hard to communicate with. I had a lengthy discussion with the ED physician and Rajwinder Hardeep the caseworker intake regarding this admission, ED department saying patient is not safe to be discharged since he lives alone, after lengthy discussion, we will admit a shoe for observation, PT erickaal, his lumbar CV showing severe degenerative changes are which we will of in consultation from neurosurgery, case management graciously will work on placement. I tried to discuss that with the patient who stated he has severe back pain, but he does not want to go to rehabilitation because they don't treat him well there. It becomes difficult situation with the patient is not safe to be discharged but yet he refused to go to rehabilitation. CBC/BMP: 09/28/16 0839 09/29/16 0518 PE at Discharge GENERAL: This is frail cachectic elderly well-developed patient, in no apparent distress. CARDIOVASCULAR: Regular rate and rhythm without murmurs, gallops, or rubs. RESPIRATORY: Clear to auscultation. Breath sounds equal bilaterally. No wheezes , rales, or rhonchi. GASTROINTESTINAL: Abdomen soft, non-tender, nondistended. Normal active bowel sounds MUSCULOSKELETAL: Extremities without clubbing, cyanosis, or edema. NEURO: Alert & Oriented x4 to person, place, time, situation. Moves all ext x4 Hospital Course 85 years old male with past medical history of generalized weakness, ESRD, hypertension, diabetes mellitus came with Recurrent generalized Worsening lower extremity weakness, unable to walk Hypertension Chronic kidney disease ESRD on hemodialysis Diabetes mellitus Occlusive thrombus on Eliquis DVT prophylaxis resume Eliquis course neurosurgery consulted recommended conservative management with back brace and intense physical therapy, patient continued to refuse rehabilitation D/W caseworker intake, will try to plan for discharging home with home health care however patient lives alone, so once he is safe for that plan we will discharge him Appreciate palliative care consultation PT OT consulted case management pt adamantly refused /declined going to SNF , [facility] accept [facility] Personally reviewed CT of the head CT of the lumbar spine which showed severe degenerative changes,patient feels better wearing back brace Pain management Accu-Chek, insulin sliding scale, resume his basal insulin, diabetic diet appreciate renal consultation for hemodialysis Resume her medication including elliquis [id number] encounter performed with the patient on discharge day, as well as physical exam, summary of hospitalization course and postdischarge plan has been D/W the patient. D/W nurse D/W caseworker intake. Discharge medications reviewed and printed and signed, post discharge follow up visit with PCP and other specialist as well as Brief hospital course and discharge summary has been placed. Pt Condition on Discharge: Fair Discharge Disposition: Disch w/ Home Health Serv Discharge Time: > 30 minutes Discharge Instructions DIET: Follow Instructions for: Heart Healthy Diet, Diabetic Diet Activities you can perform: See Additionl Instruction Other Activity Instructions: per PT recs Continued Medications: Apixaban (Eliquis) 2.5 Mg Tab 2.5 MG PO BID Blood Clot Prevention Ref 0 TAB Aspirin (Aspirin) 81 Mg Tabdr 81 MG PO DAILY TAB Cyclobenzaprine (Flexeril) 10 Mg Tab 10 MG PO TID Muscle Spasm #30 Ref 0 TAB Hydrocodone-Acetaminophen (Acton) 5-325 mg Tab 1 TAB PO Q6H PRN PAIN #14 Ref 0 TAB Insulin Detemir Inj (Levemir Inj) 1,000 unit/ 10 ML Vial 8 UNITS SQ DAILY Do not mix with any other Insulin. Blood Sugar Management Ref 0 VIAL Metoprolol Tartrate (Metoprolol Tartrate) 25 Mg Tab 25 MG PO Q12HR Regulate Heart Beat #60 TAB Nemou,High MD Oct 02, 2016 12:44
[2016-10-02] MEDS: CYCLOBENZAPRINE HCL 10 MG TAB PO SCH ×3 (13:00→18:00)
[2016-10-02] MEDS: INSULIN DETEMIR 100 UNITS/ML VIAL SQ SCH (13:18)
[2016-10-02] MEDS: APIXABAN 2.5 MG TABLET PO SCH (13:18)
[2016-10-02] MEDS: ASPIRIN EC 81 MG TABEC PO SCH (13:18)
--- NOTE | 2016-10-02 15:01 | HHI.FF ---
Face to Face Verification Diagnosis: (1) CKD (chronic kidney disease) (2) Lower back pain (3) Weakness (4) Unable to ambulate (5) HTN (hypertension) (6) End stage renal disease Physical Therapy Order: Evaluate and Treat Occupational Therapy Order: Evaluate and Treat Home Health Nursing Order: Medical education Nursing assessment with vital signs Vehicle [employer] Converter Order: To Evaluate: Living conditions/environment I have seen patient Lloyd Arias on 10/02/16. My clinical findings support the need for the requested home health care services because: Ltd mobility - disease progression Deconditioned w/ increased weakness I certify that my clinical findings support that this patient is homebound because: Unsteady gait/balance Unsafe to leave home unassisted Anila Watson MD Oct 02, 2016 15:01
--- NOTE | 2016-10-02 17:08 | HHI.HCPN ---
Reason for visit a. To assist with evaluation and management of symptoms including: pain, confusion, weakness b. To assist medical decision maker(s) with: better understanding of current medical conditions; weighing benefits/burdens of medical treatment options; making medical treatment decisions. . Subjective/Interval History Mr. Arias is a 85-year-old male with a history of ESRD on dialysis, diabetes, GERD, hypertension, hyperlipidemia and hypothyroidism. The patient presented to [facility] in [place] on 09/27/16 for evaluation of progressively worsening weakness and frequent falls. Patient seen and assessed in [facility]. Remains intermittently confused. Unwilling to discuss medical treatment goals. Does not appear to have judgement or insight related to his medical condition and overall prognosis. On hemodialysis T-- SAT. Will be dialyzed today prior to discharge, then continue his regular schedule with [facility] dialysis. Reporting continued weakness and pain in lower back. When asked to describe his pain, the patient states " It can get pretty bad. I guess it aches". CT of the lumbar spine which showed severe degenerative changes. Neurosurgery was consulted and made recommendations for conservative and adjustment with a pelvic brace and intense physical therapy. The patient stated he feels "safer" wearing the back brace. The patient stated yesterday he would consider going to rehabilitation to "strengthen the muscles in his back " so he can safely return to his home. Per note review, the patient was adamantly refusing placement at a SNF for rehab which is the patient's typical behavior. Case management note indicates the patient will be discharged home with home health care provided by Drs. Santizo when medically cleared. . Advance Directives Advance Directive Specifics Significant change in goals: Discharge home with home health care provided by Dr. Santizo. . Objective Vital Signs Date Time Temp Pulse Resp B/P Pulse Ox O2 Delivery O2 Flow Rate FiO2 10/02/16 07:21 97.9 69 16 164/72 94 10/02/16 04:59 96.8 73 20 162/81 93 10/01/16 23:42 98.1 63 20 147/68 98 10/01/16 21:30 72 10/01/16 20:37 98.1 69 20 155/69 98 10/01/16 16:54 98.1 68 16 150/69 97 Intake & Output 10/02/16 10/02/16 07:00 19:00 Output Total 1500 ml Balance -1500 ml Hemodialysis 1500 ml # Voids 1 . Physical Exam CONSTITUTIONAL/GENERAL: This is a frail, malnourished elderly male patient, in no apparent distress. TUBES/LINES/DRAINS: PIV x1, Vas-Cath SKIN: Ecchymoses on upper extremities. Skin temperature appropriate. Not diaphoretic. HEAD: Atraumatic. Normocephalic. EYES: Pupils equal and round and reactive. No scleral icterus. No injection or drainage. Fundi not examined. ENT: Hearing grossly normal. NECK: Trachea midline. CARDIOVASCULAR: Regular rate and rhythm without murmurs, gallops, or rubs. No JVD. Peripheral pulses symmetric. RESPIRATORY/CHEST: Symmetric, unlabored respirations. Clear to auscultation. No wheezes, rales, or rhonchi. GASTROINTESTINAL: Abdomen soft, non-tender, nondistended. GENITOURINARY: Without palpable bladder distension. MUSCULOSKELETAL: Extremities without clubbing, cyanosis, or edema. NEUROLOGICAL: Arouse to verbal stimuli, intermittent confused. Answering questions. Following most commands. Moves all extremities. Patient does not show insight or understanding r/t his conditions and current treatments. PSYCHIATRIC: No apparent hallucinations or other psychotic thought process. . Diagnostic Tests Result Diagram: 09/28/16 0839 09/29/16 0518 Procedures 09/28/16: Hemodialysis . Assessment and Plan Disease Oriented Problem List: (1) Malnutrition (2) HTN (hypertension) (3) End stage renal disease (4) Anxiety (5) Diabetes (6) History of hypertension Symptom Scale: (1) Pain Comment: Imaging showed severe degenerative changes in lumbar spine. Neurosurgery has been consulted. . (2) Weakness Comment: Patient has had 3 falls in the past week, stating he is unable to ambulate. Pertinent Non-Medical Issues Psychosocial: Psychosocial history was obtained via interview with patient. Patient is a poor historian. Patient has intermittent confusion and perhaps some underlying dementia. The patient states he is is originally from [facility]. He stated he was to Cynthia Arias. Together they had 2 sons, Tobias Arias and Nacho Arias. The patient states his him and took the boys and everything he had. He states he was in school at the time, and he thinks his was angry and that's why she left him. 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 He states he has no contact with his family, but would like to reconcile with his sons and his ex-. Spiritual: None Legal: Patient reports he is . Per [place] statutes, in the absence of written advanced directives healthcare proxy decision making would fall to the majority of the patient's adult children. Ethical issues impacting care: Forwarded from [facility] [employer], Nikkie Mendoza: In past admissions Mr. Arias has reported he has no one to appoint as health care surrogate and has refused to complete living will should he become incapacitated to make his own medical decisions. On previous admission [employer] report was ran in an attempt to find 2 sons. Reportedly Mr. Arias has not been in contact with his sons for 20 years. Potential matches to patient's son via [employer] report, previous notes (06/01/16 ; 06/04/16) was unable to reach and no call back. * Nacho Arias (son): [phone]--- Was able to get in touch with Nacho today. Confirmed his name. Inquired if he was the son of Mr. Lloyd Arias and he states, "No, goodbye" and hung up. * Tobias Arias (son): [phone]-- attempted to call today, message indicating "at the subscribers request, this phone is not taking incoming calls " . Important Contacts Sugey Fair, friend: [phone] Nidhi Guillaume, friend: [phone] Nacho Arias (son): [phone]--- Was able to get in touch with Nacho today. Confirmed his name. Inquired if he was the son of Mr. Lloyd Arias and he states, "No, goodbye" and hung up. Tobias Arias (son): [phone]-- attempted to call today, message indicating "at the subscribers request, this phone is not taking incoming calls" . Prognosis Mr. Arias is an 85-year-old male who reportedly lives alone. He appears cachectic, although he states he has a very good appetite. BMI: 19.4 He has fallen 3 times in the past week and complains of progressively worsening generalized weakness. Patient states he lives alone and he is frightened and unable to ambulate. Previously patient has refused rehabilitation and home health visits. Mr. Arias has been hospitalized 5 times since April,. He recently began hemodialysis 3 days weekly. However patient is not tolerating dialysis and has recently missed appointments. Nephrology states patient is not tolerating dialysis. Overall prognosis poor. . Code Status: Full Code Plan * FULL CODE * Decision-making: Patient reports he is . Per [place] statutes, in absence of written advanced directives healthcare proxy decision making would fall to the majority of the patient's adult children. * On previous admissions [employer] report was run in an attempt to find 2 sons. Reportedly Mr. Arias has not been in contact with his sons for 20 years. Potential matches to patient's son via [employer] report, previous notes (06/01/16 ; 06/04/16) was unable to reach and no call back. Nacho Arias (son): --- Was able to get in touch with Nacho today. Confirmed his name. Inquired if he was the son of Mr. Lloyd Arias and he states, "No, goodbye" and hung up. Tobias Arias (son): [phone]-- attempted to call today, message indicating "at the subscribers request, this phone is not taking incoming calls" * Goals: HOME * CT of the lumbar spine which showed severe degenerative changes. Neurosurgery was consulted and made recommendations for conservative and adjustment with a pelvic brace and intense physical therapy. The patient stated he feels "safer" wearing the back brace. The patient stated yesterday he would consider going to rehabilitation to "strengthen the muscles in his back " so he can safely return to his home. Per note review, the patient was adamantly refusing placement at a SNF for rehab which is the patient's typical behavior. * Does not appear to have judgement or insight related to his medical condition and overall prognosis. * On hemodialysis T-TH-SAT. Will be dialyzed today prior to discharge, then continue his regular schedule with [facility] dialysis. Patient previously requested to decrease the duration of analysis treatment or frequency of treatments. Nephrology explained to the patient that doing dialysis either of those ways would be ineffective, discussed the consequences of stopping dialysis and explained hospice and palliative care services. When the patient was asked today 10/01/16 what would happen if he stopped his dialysis, he said he didn't know. He asked why we couldn't "fix" his kidneys. He did not want to discuss hospice or palliative care. * Case management note indicates the patient will be discharged home with home health care provided by Drs. Santizo when medically cleared. * Palliative care contact information left patient's bedside. Care will continue to follow this patient throughout his hospitalization to establish chest, assist with symptom management and clarification of medical treatment goals . Attestation To help prompt me to consider important information that might be impacting today's encounter and assessment, information from prior notes written by myself or my colleagues may have been "brought forward" into today's note. My signature on this note, however, is an attestation that I personally performed the exam, history, and/or decision-making noted today, and, unless otherwise indicated, the interactions with patient, family, and staff as well as the review of records all occurred today. I also attest that the listed assessment and stated plan reflect my best clinical judgment today based on the combination of historical information, prior notes, and today's exam/ interactions. When time spent is documented, it refers only to time spent today by the signer, or if indicated, combined time spent today by collaborating physician/nurse practitioner. . Purvi Wong Oct 02, 2016 17:08
== END 2016-10-02 18:43 | disposition home or self-care (01) ==
LOC: NEPE 09:29 → NEDA 16:19 → NEPHCDU 19:35
PROVIDERS: ADMIT Hospitalist; ATTEND Hospitalist
DX: M62.50 Muscle wasting and atrophy, not elsewhere classified, unspecified site (principal); I12.0 Hypertensive chronic kidney disease with stage 5 chronic kidney disease or end stage renal disease; N18.6 End stage renal disease; E11.22 Type 2 diabetes mellitus with diabetic chronic kidney disease; E78.5 Hyperlipidemia, unspecified; R26.2 Difficulty in walking, not elsewhere classified; R29.6 Repeated falls; S32.028A Other fracture of second lumbar vertebra, initial encounter for closed fracture; M54.89 Other dorsalgia; I82.90 Acute embolism and thrombosis of unspecified vein; F41.9 Anxiety disorder, unspecified; E46 Unspecified protein-calorie malnutrition; K21.9 Gastro-esophageal reflux disease without esophagitis; F03.90 Unspecified dementia, unspecified severity, without behavioral disturbance, psychotic disturbance, mood disturbance, and anxiety; W18.39XA Other fall on same level, initial encounter; Z99.2 Dependence on renal dialysis; Z91.81 History of falling; D63.1 Anemia in chronic kidney disease
CPT/HCPCS: 70450; 71010; 72110; 72148; 72170; 80048; 80053; 80069; 82550; 82552; 82948; 83735; 84484; 85025; 93005; 96374; 96375; 97110; 97116; 97162; 97166; 97530; 99285; G0257; G0378; G8987; G8988; J1580; J1644; J1815; J7030; L0484; Q4081; 90935

== ENCOUNTER 2016-12-28 15:30 | Emergency (ER) | payer MEDICARE, OTHER ==
[~2016-12-28] VITALS: Ht 180.3 cm; Wt 54.0 kg
[2016-12-28 15:36] VITALS: BP 149/106; PULSE 104; RESP 17; TEMP 98.1; O2SAT 98
--- NOTE | 2016-12-28 15:42 | PD ---
Physical Exam Date Seen by Provider: Dec 28, 2016 Time Seen by Provider: 15:42 Narrative 86 year old male presents to the emergency department lower back pain. Patient has history of same. Patient has ESRD and was previously on dialysis, but recently quit. December 15 was last dialysis treatment. Hospice was recently consulted. Patient was x-rays from "head to my toes". Patient awaiting bed placement. Data Data Last Documented VS Vital Signs Date Time Temp Pulse Resp B/P Pulse Ox O2 Delivery O2 Flow Rate FiO2 12/28/16 15:36 98.1 104 17 149/106 98 MDM Supervised Visit with RIAN: Abimbola Call Dec 28, 2016 15:42
[2016-12-28 18:01] VITALS: BP 166/79; PULSE 78; RESP 16; O2SAT 97
[2016-12-28 18:49] LABS: BASOPHIL # 0.1 TH/MM3 (0-0.2); BASOPHIL % 0.5 % (0.0-2.0); EOSINOPHIL # 0.1 TH/MM3 (0-0.4); EOSINOPHIL % 0.7 % (0.0-4.0); HEMATOCRIT 35.2 % (39.0-51.0); HEMO FLAGS DIFF FINAL; LYMPH % 3.9 % (9.0-44.0); LYMPHOCYTE # 0.7 TH/MM3 (1.0-4.8); MEAN CELL VOLUME 86.5 FL (80.0-100.0); MEAN CORPUSCULAR HEMOGLOBIN 28.1 PG (27.0-34.0); MEAN CORPUSCULAR HGB CONC 32.4 % (32.0-36.0); NEUT % 91.9 % (16.0-70.0); PLATELET COUNT 271 TH/MM3 (150-450); RED BLOOD COUNT 4.07 MIL/MM3 (4.50-5.90); WHITE BLOOD COUNT 18.5 TH/MM3 (4.0-11.0)
--- NOTE | 2016-12-28 18:54 | PD ---
HPI Chief Complaint: Back/ Neck Pain or Injury Time Seen by Provider: 18:18 Travel History International Travel<30 days: No Contact w/Intl Traveler<30days: No Traveled to known affect area: No History of Present Illness HPI This is an 86 year-old gentleman history of end-stage renal disease, diabetes mellitus, who reportedly is on [facility], who presents today with complaints of requesting x-rays from his head to his toe. The patient states he 's had chronic lower back pain. The patient was dialysis dependent however he stopped dialysis December 15 on his own. Patient states that he stopped dialysis because he thought it was "killing him". The patient states that he thought the dialysis was not doing any good and was told that he can live several years without having to have dialysis. I informed that this was probably not true but he would not agree with me. PFSH Past Medical History Hx Anticoagulant Therapy: Yes Asthma: No Autoimmune Disease: No Blood Disorders: No Anxiety: Yes Depression: No Heart Rhythm Problems: No Cancer: No Cardiovascular Problems: Yes High Cholesterol: No Chemotherapy: No Chest Pain: No Congestive Heart Failure: No COPD: No Diabetes: Yes Dialysis: Yes Diminished Hearing: Yes Endocrine: Yes Genitourinary: Yes (RENAL INSUFF, dialysis) Hypertension: Yes Immune Disorder: No Implanted Vascular Access Dvce: Yes Musculoskeletal: Yes (WEAKNESS, USES CANE) Neurologic: No Psychiatric: Yes Reproductive: No Respiratory: No Radiation Therapy: No Renal Failure: Yes (INSUFFICIENCY) Sleep Apnea: No Thyroid Disease: Yes Past Surgical History AICD: No Arteriovenous Shunt: No Eye Surgery: Yes (3 YRS AGO) Insulin Pump: No Joint Replacement: No Pacemaker: No Other Surgery: Yes Social History Alcohol Use: Yes (OCC) Tobacco Use: No Substance Use: No Allergies-Medications (Allergen,Severity, Reaction): Coded Allergies: No Known Allergies (Verified , 12/28/16) Reported Meds & Prescriptions Reported Meds & Active Scripts Active Metoprolol Tartrate 25 Mg Tab 25 Mg PO Q12HR Flexeril (Cyclobenzaprine HCl) 10 Mg Tab 10 Mg PO TID [place] (Hydrocodone-Acetaminophen) 5-325 mg Tab 1 Tab PO Q6H PRN Reported Eliquis (Apixaban) 2.5 Mg Tab 2.5 Mg PO BID Levemir Inj (Insulin Detemir) 1,000 unit/ 10 ML Vial 8 Units SQ DAILY Do not mix with any other Insulin. Aspirin 81 Mg Tabdr 81 Mg PO DAILY Review of Systems Except as stated in HPI: all other systems reviewed are Neg General / Constitutional: No: Fever, Chills HENT: No: Headaches, Lightheadedness Cardiovascular: No: Chest Pain or Discomfort, Palpitations Respiratory: Positive: Shortness of Breath, No: Cough Gastrointestinal: Positive: Loss of Appetite, No: Nausea, Vomiting, Abdominal Pain Musculoskeletal: Positive: Pain (lower back and left hip) Neurologic: Positive: Weakness (generalized), No: Dizziness, Headache Physical Exam Narrative GENERAL: Well-nourished, well-developed patient, in no acute respiratory distress.. SKIN: Focused skin assessment warm/dry. Mild skin tenting noted. HEAD: Normocephalic/atraumatic. EYES: No scleral icterus. No injection or drainage. NECK: Supple, trachea midline. CARDIOVASCULAR: Regular rate in the 80s. normal rhythm without murmurs, gallops , or rubs. RESPIRATORY: Breath sounds equal bilaterally. No accessory muscle use. GASTROINTESTINAL: Abdomen soft, non-tender, nondistended. MUSCULOSKELETAL: No cyanosis, or edema. BACK: Subjective tenderness in the lower lumbar area at the level of L4. This is in the left paraspinous area. As no bony process spinous process tenderness. He also had some discomfort in his left iliac crest. NEUROLOGICAL: Awake and alert. Cranial nerves II through XII intact. Motor and sensory grossly within normal limits. Five out of 5 muscle strength in all muscle groups. Normal speech. Data Data Last Documented VS Vital Signs Date Time Temp Pulse Resp B/P Pulse Ox O2 Delivery O2 Flow Rate FiO2 12/28/16 18:01 78 16 12/28/16 18:01 166/79 97 Room Air 12/28/16 15:36 98.1 Orders Complete Blood Count With Diff (12/28/16 18:19) Comprehensive Metabolic Panel (12/28/16 18:19) Magnesium (Mg) (12/28/16 18:19) Phosphorus (Po4) (12/28/16 18:19) Chest, Single Ap (12/28/16 18:19) Iv Access Insert/Monitor (12/28/16 18:19) Ecg Monitoring (12/28/16 18:19) Oximetry (12/28/16 18:19) Spine, Lumbar - Ltd (Ap & Lat) (12/28/16 18:19) Pelvis, Ap Only (Routine) (12/28/16 18:19) Labs Laboratory Tests Test 12/28/16 18:15 White Blood Count 18.5 TH/MM3 Red Blood Count 4.07 MIL/MM3 Hemoglobin 11.4 GM/DL Hematocrit 35.2 % Mean Corpuscular Volume 86.5 FL Mean Corpuscular Hemoglobin 28.1 PG Mean Corpuscular Hemoglobin 32.4 % Concent Red Cell Distribution Width 19.0 % Platelet Count 271 TH/MM3 Mean Platelet Volume 7.2 FL Neutrophils (%) (Auto) 91.9 % Lymphocytes (%) (Auto) 3.9 % Monocytes (%) (Auto) 3.0 % Eosinophils (%) (Auto) 0.7 % Basophils (%) (Auto) 0.5 % Neutrophils # (Auto) 17.0 TH/MM3 Lymphocytes # (Auto) 0.7 TH/MM3 Monocytes # (Auto) 0.6 TH/MM3 Eosinophils # (Auto) 0.1 TH/MM3 Basophils # (Auto) 0.1 TH/MM3 CBC Comment DIFF FINAL Differential Comment MDM Medical Decision Making Medical Screen Exam Complete: Yes Emergency Medical Condition: Yes Differential Diagnosis Dehydration versus fluid overload versus acute on chronic renal failure Narrative Course 86-year-old male who has a history of end-stage renal disease, dialysis dependent, who stopped taking dialysis December 15. The patient electively stopped his dialysis. The patient is reportedly on hospice however he states he wants a complete checkup. The patient was requesting x-rays from head to toe. 4. We will get a chest x-ray and a lower back and hip x-ray only. I did say we will check fluids and address any abnormalities that came back. The patient will be signed out to Dr. Randy Shoemaker, physician replacing this physician. His additional be per Dr. wilson. Diagnosis Primary Impression: Weakness Leonardo Proctor MD Dec 28, 2016 18:54
[2016-12-28 19:09] LABS: ANION GAP 11 MEQ/L (5-15); AST (GOT) 17 U/L (15-37); BICARBONATE 24.5 MEQ/L (21.0-32.0); BLOOD UREA NITROGEN 100 MG/DL (7-18); CHLORIDE 103 MEQ/L (98-107); GLOMERULAR FILTRATION RATE 7 ML/MIN (>89); MAGNESIUM 2.3 MG/DL (1.5-2.5); POTASSIUM 5.1 MEQ/L (3.5-5.1); SODIUM (NA) 138 MEQ/L (136-145)
[2016-12-28 19:13] LABS: ALKALINE PHOSPHATASE 186 U/L (45-117); ALT (GPT) 22 U/L (12-78); TOTAL BILIRUBIN ADULT 0.3 MG/DL (0.2-1.0)
--- NOTE | 2016-12-28 19:17 | RADRPT ---
EXAM DATE/TIME: 12/28/2016 18:43 [facility] COMPARISON: CHEST SINGLE AP, September 27, 2016, 10:53. INDICATIONS : Wheezing. MEDICAL HISTORY : Renal failure, acute. SURGICAL HISTORY : Dialysis catheter. ENCOUNTER: Initial ACUITY: 1 day PAIN SCORE: 0/10 LOCATION: Chest FINDINGS: There is a double lumen catheter in place with the tips overlying the right atrium. Th e heart size is normal. There is increased density at the bases bilaterally being worse on the right . The mid and upper lungs are relatively clear. There is some blunting of the right costophrenic an gle likely related to a mild right effusion. The left costophrenic angle is clear. CONCLUSION: 1. Suspected double lumen dialysis catheter in place with the tips overlying the right atrium. 2. Bibasilar areas of mild atelectasis or consolidation being worse on the right. There also appears to be a mild right pleural effusion. Will Tse MD on December 28, 2016 at 19:11 Board Certified Radiologist. This report was verified electronically.
--- NOTE | 2016-12-28 19:23 | RADRPT ---
EXAM DATE/TIME: 12/28/2016 18:48 [facility] COMPARISON: PELVIS AP ONLY, September 27, 2016, 10:58. INDICATIONS : Patient complains of pelvic pain after dialysis treatment. MEDICAL HISTORY : Renal failure, acute. SURGICAL HISTORY : None. ENCOUNTER: Initial ACUITY: 2 days PAIN SCORE: 8/10 LOCATION: Pelvis FINDINGS: Two films of the pelvis have been obtained. On the second image the left hip is rotated and there is an area of cortex seen in the medial inferior aspect of the femoral neck region which a bruptly ends. On the first image the femoral neck that is visualized on the left side appears intact . The area seen on the second film is likely within normal limits. There was a similar area seen on the prior exam from 09/27/2016 on the second image. A definite fracture is not clearly confirmed. T here is degenerative change in the lower lumbar spine. Vascular calcifications are seen. The bones appear osteopenic. CONCLUSION: No definite fracture is seen. There is an unusual appearance of the inferior medial aspect of the femoral neck on one of the images but this area had a somewhat similar appearance on th e prior exam. If there are continued symptoms in this region, the patient could be further evaluated with a CT examination. Will Tse MD on December 28, 2016 at 19:13 Board Certified Radiologist. This report was verified electronically.
[2016-12-28] MEDS ORDERED: LEVO88TA2 PO (19:25)
[2016-12-28] MEDS ORDERED: GABA100C4 PO (19:25)
[2016-12-28] MEDS ORDERED: LOSA50TA PO (19:25)
--- NOTE | 2016-12-28 19:26 | RADRPT ---
EXAM DATE/TIME: 12/28/2016 18:51 [facility] COMPARISON: SPINE LUMBAR LTD (AP & LAT), September 05, 2016, 13:27. INDICATIONS : Patient complains of lower back pain after having dialysis treatment. MEDICAL HISTORY : None. SURGICAL HISTORY : None. ENCOUNTER: Initial ACUITY: 1 day PAIN SCORE: 8/10 LOCATION: L-Spine FINDINGS: There is a compression deformity at the superior aspect of the L2 vertebral body. It appears that the anterior aspect of the vertebral body has lost approximately 20% of its original height. The remaining lumbar vertebral bodies are normal in height. There is spurring seen through out the lumbar spine. There is disc space narrowing at the L4-L5 and L5-S1 disc levels. The sacroil iac joints are grossly intact. CONCLUSION: Mild new compression deformity at the superior aspect of L2. Will Tse MD on December 28, 2016 at 19:19 Board Certified Radiologist. This report was verified electronically.
--- NOTE | 2016-12-28 19:42 | PD ---
Data Data Last Documented VS Vital Signs Date Time Temp Pulse Resp B/P Pulse Ox O2 Delivery O2 Flow Rate FiO2 12/28/16 18:01 78 16 12/28/16 18:01 166/79 97 Room Air 12/28/16 15:36 98.1 Orders Complete Blood Count With Diff (12/28/16 18:19) Comprehensive Metabolic Panel (12/28/16 18:19) Magnesium (Mg) (12/28/16 18:19) Phosphorus (Po4) (12/28/16 18:19) Chest, Single Ap (12/28/16 18:19) Iv Access Insert/Monitor (12/28/16 18:19) Ecg Monitoring (12/28/16 18:19) Oximetry (12/28/16 18:19) Spine, Lumbar - Ltd (Ap & Lat) (12/28/16 18:19) Pelvis, Ap Only (Routine) (12/28/16 18:19) Labs Laboratory Tests Test 12/28/16 18:15 White Blood Count 18.5 TH/MM3 Red Blood Count 4.07 MIL/MM3 Hemoglobin 11.4 GM/DL Hematocrit 35.2 % Mean Corpuscular Volume 86.5 FL Mean Corpuscular Hemoglobin 28.1 PG Mean Corpuscular Hemoglobin 32.4 % Concent Red Cell Distribution Width 19.0 % Platelet Count 271 TH/MM3 Mean Platelet Volume 7.2 FL Neutrophils (%) (Auto) 91.9 % Lymphocytes (%) (Auto) 3.9 % Monocytes (%) (Auto) 3.0 % Eosinophils (%) (Auto) 0.7 % Basophils (%) (Auto) 0.5 % Neutrophils # (Auto) 17.0 TH/MM3 Lymphocytes # (Auto) 0.7 TH/MM3 Monocytes # (Auto) 0.6 TH/MM3 Eosinophils # (Auto) 0.1 TH/MM3 Basophils # (Auto) 0.1 TH/MM3 CBC Comment DIFF FINAL Differential Comment Sodium Level 138 MEQ/L Potassium Level 5.1 MEQ/L Chloride Level 103 MEQ/L Carbon Dioxide Level 24.5 MEQ/L Anion Gap 11 MEQ/L Blood Urea Nitrogen 100 MG/DL Creatinine 7.64 MG/DL Estimat Glomerular Filtration 7 ML/MIN Rate Random Glucose 300 MG/DL Calcium Level 9.2 MG/DL Phosphorus Level 4.1 MG/DL Magnesium Level 2.3 MG/DL Total Bilirubin 0.3 MG/DL Aspartate Amino Transf 17 U/L (AST/SGOT) Alanine Aminotransferase 22 U/L (ALT/SGPT) Alkaline Phosphatase 186 U/L Total Protein 8.7 GM/DL Albumin 3.2 GM/DL [facility] Supervised Visit with RIAN: No Narrative Course Assumed care patient from Dr. Proctor. 86-year-old man, history of end-stage renal disease, refusing dialysis on hospice, presents with generalized weakness and back pain for a "checkup". On exam: Patient's in pleasant spirits. No acute distress. X-ray imaging was ordered and shows: Left hip and AP pelvis: No definite fracture. Unusual appearance of the inferior medial aspect of the femoral neck on the images that this is an area somewhat similar appearance on prior exam. Could consider further evaluation with CT. L-spine x-ray: Mild new compression deformity at the superior aspect of L2. Chest x-ray: Suspected double-lumen dialysis catheter in place with tips overlying the right atrium. Bibasilar atelectasis, worse on the right. Mild right pleural effusion. Labs were ordered and show: CBC with leukocytosis, mild anemia. CMP with elevated BUN and creatinine 100/7.64, glucose of 300 FINAL: Patient with known end-stage renal disease. Refusing dialysis. We did discuss that again. He knows that without dialysis he'll likely in weeks to months. He states that doing dialysis took so much out of him that he could not even really live for another day or so after each dialysis session and it was very uncomfortable for him. I think hospice is very reasonable and consistent with his goals of care. Reviewed his x-ray imaging. Possible compression fracture. I don't think he has any new fractures in his left hip. Recommend continue Neurontin, Tylenol for pain, follow-up with hospice. Diagnosis Primary Impression: Weakness Additional Instruction: Continue current medications. Use acetaminophen in addition to your gabapentin/Neurontin as needed for pain. Follow-up with the hospice doctor as planned. Call your hospice doctor for any new or worsening symptoms. Disposition: 01 DISCHARGE HOME Condition: Stable Randy Shoemaker MD Dec 28, 2016 19:42
== END 2016-12-28 21:01 | disposition home or self-care (01) ==
LOC: NEPE 15:30
DX: R53.1 Weakness (principal); J98.11 Atelectasis; J90 Pleural effusion, not elsewhere classified; N18.6 End stage renal disease; E11.9 Type 2 diabetes mellitus without complications; I12.0 Hypertensive chronic kidney disease with stage 5 chronic kidney disease or end stage renal disease; E07.9 Disorder of thyroid, unspecified; H91.90 Unspecified hearing loss, unspecified ear; Z99.2 Dependence on renal dialysis; Z79.01 Long term (current) use of anticoagulants; Z79.4 Long term (current) use of insulin; Z86.59 Personal history of other mental and behavioral disorders; Z86.79 Personal history of other diseases of the circulatory system; Z87.448 Personal history of other diseases of urinary system; Z87.39 Personal history of other diseases of the musculoskeletal system and connective tissue
CPT/HCPCS: 71010; 72100; 72170; 80053; 83735; 84100; 85025; 99283